=== PATIENT | female | born 1950 | race Caucasian/White ===

== ENCOUNTER 2017-08-09 09:41 | Inpatient (IN) | payer OTHER ==
[2017-08-09] VITALS (28 sets, daily range): BP systolic 78–144; BP diastolic 46–88
[~2017-08-09] VITALS: Ht 152.4 cm; Wt 61.2 kg
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
--- NOTE | ~2017-08-09 | EKG ---
[place] [address] [facility] [place] [address] ELECTROCARDIOGRAM REPORT Name: COUGHLINEVER Room #: [facility]#: [id number] Admission: Attend Phys: Discharge: Date of : 54 Report #: [id number] THIS REPORT FOR: //name// [facility] ED Test Date: 2017-08-09 Test Time: 09:43:52 Pat Name: EVER COUGHLIN Department: Room: Gender: F Bran Mixer: AMINA : 1950 Requested By: Clare Farr Order Number: [id number] MD: Van Cool Measurements Intervals [place] Rate: 142 P: 66 ND: 135 QRS: 36 QRSD: 74 T: 176 QT: 279 QTc: 429 Interpretive Statements Sinus tachycardia Probable LVH with secondary repol abnrm No previous ECG available for comparison Electronically Signed On 08-09-2017 10:01:33 GEOSCIENCES FACULTY MEMBER by Van Cool [email or web address] <ELECTRONICALLY SIGNED> By: Van Cool MD, [facility] 08/09/17 1001 0943 0943 Van Cool MD, FACC /EPI
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
[2017-08-09] MEDS ORDERED: POTASSIUM20 PER TUBE (09:58)
[2017-08-09] MEDS ORDERED: LEVOTHYROXINE125 MCG PER TUBE (09:58)
[2017-08-09] MEDS ORDERED: LANTUS100 UNIT/M SUBQ (09:59)
[2017-08-09] MEDS ORDERED: KEPPRA 500 MG500 M1 PER TUBE (10:00)
[2017-08-09] MEDS ORDERED: AMLODIPINE BESY10 MG PER TUBE (10:01)
[2017-08-09] MEDS ORDERED: PEPCID40 MG/5 M1 PER TUBE (10:02)
[2017-08-09] MEDS ORDERED: HUMALOG100 UNIT/1 SUBQ (10:03)
[2017-08-09] MEDS ORDERED: ACCUCHECK (10:03)
[2017-08-09 10:10] LABS: HEMATOCRIT 39.9 % (37.0-47.0); HEMOGLOBIN 13.3 gm/dL (12.0-15.0); MCH 29.9 pg (26.0-34.0); MCHC 33.3 g/dL (28.0-37.0); MCV 89.8 fL (80.0-100.0); PLATELET COUNT 427 thou/uL (150-400); RBC 4.44 mil/uL (4.20-5.00); RDW 13.8 % (10.5-14.5); WBC 27.9 thou/uL (4.0-11.0)
[2017-08-09 10:14] LABS: MANUAL DIFF YES
[2017-08-09 10:18] LABS: CALCIUM 10.3 mg/dL (8.5-10.1); POTASSIUM 5.2 mmol/L (3.5-5.1)
[2017-08-09 10:23] LABS: ALBUMIN 3.5 g/dL (3.4-5.0); DIRECT BILIRUBIN 0.2 mg/dL (<0.1-0.3); TOTAL BILIRUBIN 1.1 mg/dL (<0.1-1.0); TOTAL PROTEIN 7.4 g/dL (6.4-8.2)
[2017-08-09 10:25] LABS: ABG SAMPLE TYPE ARTERIAL; BE(vivo) -1.7 mmol/L (-2 to +3); LACTATE 3.25 mmol/L (0.5-2.0); O2(CT) 13.5 mL/dL (15.0-23.0); PCO2 33.6 mmHg (35.0-45.0); PO2 50.6 mmHg (80.0-100.0); pH 7.434 (7.360-7.450); sO2 87.4 % (92.0-98.0)
[2017-08-09 10:26] LABS: Face Shield 60 %; STICK SITE RRAD
[2017-08-09 10:29] LABS: URINE COLOR YELLOW
[2017-08-09 10:40] LABS: URINE BILIRUBIN NEGATIVE (Negative)
[2017-08-09 10:41] LABS: AMORPHOUS URATES Many /LPF (None Seen); CASTS None Seen /LPF (None Seen); SQUAMOUS None Seen /LPF (0-3); URINE RBC 3-10 Few /HPF (0-2); URINE WBC 6-15 Few /HPF (0-5)
[2017-08-09 11:10] LABS: ABSOLUTE NEUTROPHILS 25.9 thou/uL (1.4-8.2); PLATELET ESTIMATE NORMAL; TOTAL CELL COUNT 100
[2017-08-09 13:53] LABS: CALCIUM 8.9 mg/dL (8.5-10.1); CREATININE 0.8 mg/dL (0.6-1.0); POTASSIUM 3.6 mmol/L (3.5-5.1)
[2017-08-09 17:33] LABS: CALCIUM 8.4 mg/dL (8.5-10.1); CREATININE 0.5 mg/dL (0.6-1.0); POTASSIUM 3.3 mmol/L (3.5-5.1)
[2017-08-09 21:23] LABS: POTASSIUM 3.6 mmol/L (3.5-5.1)
[2017-08-10] VITALS (31 sets, daily range): BP systolic 96–145; BP diastolic 50–94
[2017-08-10 05:17] LABS: ABG SAMPLE TYPE ARTERIAL; BE(vivo) -0.3 mmol/L (-2 to +3); HCO3 23.2 mmol/L (22.0-26.0); LACTATE 0.98 mmol/L (0.5-2.0); O2(CT) 14.1 mL/dL (15.0-23.0); PCO2 33.8 mmHg (35.0-45.0); PO2 72.2 mmHg (80.0-100.0); pH 7.454 (7.360-7.450); sO2 95.4 % (92.0-98.0); tCO2 24.2 mmol/L (24.0-30.0)
[2017-08-10 05:18] LABS: STICK SITE R.RADIAL
[2017-08-10 06:16] LABS: HEMATOCRIT 27.8 % (37.0-47.0); MCH 30.7 pg (26.0-34.0); MCHC 33.8 g/dL (28.0-37.0); MCV 90.8 fL (80.0-100.0); RBC 3.07 mil/uL (4.20-5.00); RDW 13.5 % (10.5-14.5)
[2017-08-10 06:17] LABS: HEMOGLOBIN 9.4 gm/dL (12.0-15.0); MANUAL DIFF YES; PLATELET COUNT 233 thou/uL (150-400)
[2017-08-10 06:30] LABS: ALBUMIN 2.5 g/dL (3.4-5.0); CALCIUM 8.4 mg/dL (8.5-10.1); CREATININE 0.4 mg/dL (0.6-1.0); TOTAL BILIRUBIN 1.1 mg/dL (<0.1-1.0); TOTAL PROTEIN 5.5 g/dL (6.4-8.2)
[2017-08-10 06:32] LABS: POTASSIUM 2.9 mmol/L (3.5-5.1)
[2017-08-10 08:50] LABS: ABSOLUTE NEUTROPHILS 14.2 thou/uL (1.4-8.2); PLATELET ESTIMATE NORMAL; TOTAL CELL COUNT 100
[2017-08-10 09:31] LABS: MAGNESIUM 1.6 mg/dL (1.8-2.4)
[2017-08-10 15:45] LABS: POTASSIUM 3.1 mmol/L (3.5-5.1)
[2017-08-11] VITALS (16 sets, daily range): BP systolic 100–152; BP diastolic 53–79
[2017-08-11 05:36] LABS: HEMOGLOBIN 8.9 gm/dL (12.0-15.0); MCH 30.6 pg (26.0-34.0); MCHC 34.2 g/dL (28.0-37.0); MCV 89.5 fL (80.0-100.0); PLATELET COUNT 228 thou/uL (150-400); RDW 13.2 % (10.5-14.5); WBC 16.7 thou/uL (4.0-11.0)
[2017-08-11 05:39] LABS: MANUAL DIFF YES
[2017-08-11 05:42] LABS: CALCIUM 8.2 mg/dL (8.5-10.1); CREATININE 0.4 mg/dL (0.6-1.0); POTASSIUM 3.1 mmol/L (3.5-5.1)
[2017-08-11 08:33] LABS: ABSOLUTE NEUTROPHILS 14.4 thou/uL (1.4-8.2); TOTAL CELL COUNT 100
[2017-08-12 04:47] VITALS: BP 132/63
[2017-08-12 07:38] VITALS: BP 146/66
[2017-08-12 15:20] VITALS: BP 125/66
[2017-08-12 20:31] VITALS: BP 133/69
[2017-08-13 06:20] LABS: HEMATOCRIT 25.3 % (37.0-47.0); HEMOGLOBIN 8.6 gm/dL (12.0-15.0); MCH 30.8 pg (26.0-34.0); MCV 90.7 fL (80.0-100.0); RBC 2.79 mil/uL (4.20-5.00); RDW 13.1 % (10.5-14.5); WBC 9.1 thou/uL (4.0-11.0)
[2017-08-13 06:38] LABS: ALBUMIN 2.1 g/dL (3.4-5.0); CALCIUM 8.5 mg/dL (8.5-10.1); CREATININE 0.3 mg/dL (0.6-1.0); PHOSPHORUS 2.4 mg/dL (2.5-4.9); POTASSIUM 3.4 mmol/L (3.5-5.1)
[2017-08-13 07:45] VITALS: BP 118/66
[2017-08-13 11:00] VITALS: BP 118/66
[2017-08-13 16:05] VITALS: BP 128/70
[2017-08-13 20:15] VITALS: BP 143/77
[2017-08-14 05:55] VITALS: BP 120/58
[2017-08-14 08:31] VITALS: BP 132/68
[2017-08-14 16:26] VITALS: BP 132/65
[2017-08-14 20:15] VITALS: BP 131/60
[2017-08-15 07:43] VITALS: BP 127/62
[2017-08-15 16:15] VITALS: BP 128/66
[2017-08-15 20:43] VITALS: BP 138/78
[2017-08-16 04:15] VITALS: BP 127/63
[2017-08-16 04:20] VITALS: BP 127/63
[2017-08-16 11:00] VITALS: BP 137/81
[2017-08-16 15:38] VITALS: BP 118/63
[2017-08-16 20:54] VITALS: BP 120/63
[2017-08-17 00:01] VITALS: BP 108/63
[2017-08-17 04:00] LABS: HEMATOCRIT 29.9 % (37.0-47.0); HEMOGLOBIN 10.6 gm/dL (12.0-15.0); MCH 31.6 pg (26.0-34.0); MCHC 35.6 g/dL (28.0-37.0); MCV 88.7 fL (80.0-100.0); RBC 3.37 mil/uL (4.20-5.00); RDW 13.4 % (10.5-14.5); WBC 13.4 thou/uL (4.0-11.0)
[2017-08-17 04:07] LABS: ALBUMIN 2.6 g/dL (3.4-5.0); CALCIUM 9.4 mg/dL (8.5-10.1); CREATININE 0.4 mg/dL (0.6-1.0); PHOSPHORUS 3.9 mg/dL (2.5-4.9); POTASSIUM 3.8 mmol/L (3.5-5.1)
[2017-08-17 04:15] VITALS: BP 119/63
[2017-08-17 07:30] VITALS: BP 116/64
[2017-08-17] MEDS ORDERED: AUGMENTIN 875-1 EACH PO (08:55)
[2017-08-17 11:12] VITALS: BP 131/93
[2017-08-17 15:51] VITALS: BP 103/88
[2017-08-17 19:45] VITALS: BP 152/42
[2017-08-18 00:30] VITALS: BP 108/51
[2017-08-18 03:34] LABS: HEMATOCRIT 27.3 % (37.0-47.0); HEMOGLOBIN 9.3 gm/dL (12.0-15.0); MCH 30.3 pg (26.0-34.0); MCHC 34.2 g/dL (28.0-37.0); MCV 88.6 fL (80.0-100.0); RBC 3.08 mil/uL (4.20-5.00); WBC 11.8 thou/uL (4.0-11.0)
[2017-08-18 03:35] LABS: PLATELET COUNT 400 thou/uL (150-400)
[2017-08-18 03:36] LABS: MANUAL DIFF YES
[2017-08-18 04:05] VITALS: BP 113/57
[2017-08-18 05:59] LABS: ABSOLUTE NEUTROPHILS 10.5 thou/uL (1.4-8.2); TOTAL CELL COUNT 100
[2017-08-18 08:16] VITALS: BP 109/66
[2017-08-18 12:26] VITALS: BP 130/107
[2017-08-18 16:00] VITALS: BP 100/65
== END 2017-08-18 17:12 | DRG 871 ==
LOC: ER 09:41 → ICU 10:56 → EROBS 10:56 → ICU 12:56 → 4S 08-11 16:17 → 2N 08-16 10:43
PROVIDERS: Emergency Medicine; Hospitalist; Internal Medicine Pulmonary Disease; Specialist
PROC: B244ZZZ Ultrasonography of Right Heart (ICD-10-PCS; principal; 2017-08-09)
PROC: 02H633Z Insertion of Infusion Device into Right Atrium, Percutaneous Approach (ICD-10-PCS; principal; 2017-08-09)
DX: A41.9 Sepsis, unspecified organism (principal); G93.40 Encephalopathy, unspecified; J18.9 Pneumonia, unspecified organism; J96.91 Respiratory failure, unspecified with hypoxia; N17.9 Acute kidney failure, unspecified; N39.0 Urinary tract infection, site not specified; E46 Unspecified protein-calorie malnutrition; R65.20 Severe sepsis without septic shock; G40.909 Epilepsy, unspecified, not intractable, without status epilepticus; B96.4 Proteus (mirabilis) (morganii) as the cause of diseases classified elsewhere; E87.6 Hypokalemia; D64.9 Anemia, unspecified; Z85.3 Personal history of malignant neoplasm of breast; Z87.820 Personal history of traumatic brain injury; Z88.8 Allergy status to other drugs, medicaments and biological substances; Z88.2 Allergy status to sulfonamides; Z68.26 Body mass index [BMI] 26.0-26.9, adult; Z93.0 Tracheostomy status
CPT/HCPCS: 10078; 10081; 10100; 27000

== ENCOUNTER 2017-10-05 10:47 | Inpatient (IN) | payer OTHER ==
[2017-10-05] VITALS (46 sets, daily range): BP systolic 59–147; BP diastolic 37–82
[~2017-10-05] VITALS: Ht 152.4 cm; Wt 66.3 kg
--- NOTE | ~2017-10-05 | EKG ---
[place] [address] [facility] [place] [address] ELECTROCARDIOGRAM REPORT Name: COUGHLINEVER Room #: 240-[facility] IN M.R.#: [id number] Admission: 10/05/17 Attend Phys: Avtar Diana DO Discharge: Date of : 54 Report #: [id number] THIS REPORT FOR: //name// [facility] ED Test Date: 2017-10-05 Test Time: 11:05:45 Pat Name: EVER COUGHLIN Department: Room: 240 Gender: F Global Transportation Manager: CORONA : 1950 Requested By: Ricky Escobar Order Number: [id number] MD: Van Cool Measurements Intervals [place] Rate: 147 P: 77 WA: 112 QRS: 73 QRSD: 80 T: -70 QT: 333 QTc: 521 Interpretive Statements Sinus tachycardia Consider right atrial enlargement Nonspecific ST segment abnormality Prolonged QT interval Compared to ECG 08/09/2017 09:43:52 Prolonged QT interval now present Electronically Signed On 10-05-2017 17:00:19 OIL ANALYST by Van Cool [email or web address] <ELECTRONICALLY SIGNED> By: Van Cool MD, [facility] 10/05/17 1700 1105 1105 Van Cool MD, [facility] /EPI
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
--- NOTE | ~2017-10-05 | HC ---
[facility] [place] [address] CONSULTATION Name: MADYSONEVER Vu Room #: 240-P [facility] IN M.R.#: [id number] Admission: 10/05/17 Attend Phys: Avtar Diana DO Discharge: Date of : 54 Report #: [id number] THIS REPORT FOR: //name// CC: Avtar Bolton DATE OF SERVICE: 10/05/2017 REFERRING PROVIDER: Avtar Diana DO REASON FOR CONSULTATION: Respiratory failure. CHIEF COMPLAINT: Aspiration. HISTORY OF PRESENT ILLNESS: Our group was asked to see the patient in consultation while hospitalized at [facility], seen this afternoon in the ICU. Discussed with nursing, is a 67-year-old woman with an unfortunate past medical history of left hemicraniectomy, has had chronic ventilator support since that time, found at [facility] facility with a change in status. Secretions aspirated from her trachea were actually tube feeds. The patient was brought to the Emergency Department in respiratory distress, but significantly recovered. A significant lactic acidosis has improved. After my evaluation, the patient was placed on sepsis protocol due to other findings consistent with severe infection. Unable to get any further history from the patient at this time. While seen in the ICU, I also placed PEG tube to suction and was able to aspirate a large amount of material from her G-tube. ALLERGIES: SULFA, PROCHLORPERAZINE AND ADHESIVE. PAST MEDICAL HISTORY: 1. Left hemicraniectomy as described above. 2. Chronic respiratory insufficiency. 3. Hypertension. 4. History of breast cancer treated in 2011. CURRENT MEDICATIONS: 1. Vancomycin. 2. Zosyn. 3. Azithromycin. 4. Synthroid. 5. Keppra. SOCIAL HISTORY: Currently residing at a [facility] facility. No tobacco history. [facility] [address] [place] [address] CONSULTATION Name: MADYSONEVER A Room #: 240-P [facility] IN [facility]#: [id number] Admission: 10/05/17 Attend Phys: Avtar Diana DO Discharge: Date of : 54 Report #: [id number] FAMILY HISTORY: Unobtainable. REVIEW OF SYSTEMS: Unobtainable due to her current neurologic status. PHYSICAL EXAMINATION: VITAL SIGNS: Temperature 39.2, pulse 140s and regular, respiratory rate 18 and blood pressure 92/73. GENERAL: This is an elderly woman, unresponsive. ENT: Extended length trach in place with tube feedings noted around the airway. No surrounding erythema. C-collar in place. The patient with typically a helmet in place. LUNGS: Relatively clear. CARDIOVASCULAR: Tachycardic, but regular. ABDOMEN: Mildly distended. EXTREMITIES: Warm. INTEGUMENT: No rash. NEUROLOGIC: The patient opens eyes to painful stimuli. No other response appreciated at this time. Pupils sluggish. LABORATORY DATA: White blood cell count 13,000, hemoglobin 15, hematocrit 45 and platelet count 450. Sodium was 143, potassium 4.1, chloride 104, bicarbonate 29, BUN 50, creatinine 1.1, glucose 187 and total bilirubin 1.9. Arterial blood gas initially was pH 7.44, pCO2 of 28, pO2 542, bicarbonate of 18 with a lactate of 12. Current vent settings include assist control tidal volume 550, FiO2 of 30%, PEEP of 5 and rate of 16. IMPRESSION: 1. Severe sepsis, suspect secondary to abdominal process. 2. Aspiration on tube feeds. 3. Chronic respiratory failure. 4. History of traumatic brain injury with significant neurologic sequelae. 5. History of hypertension. SUGGESTIONS: 1. Sepsis protocol. 2. ID evaluation and antibiotics recommendations. 3. Cultures. 4. CT abdomen and pelvis. 5. Continue with current vent support. 6. Bronchodilators. 7. We will follow along with you as mentioned. Discussed with nursing. [address] [address] CONSULTATION Name: EVER COUGHLIN Vu Room #: [address] [place] [address] [place] .R.#: [id number] Admission: 10/05/17 Attend Phys: Avtar Diana DO Discharge: Date of : 54 Report #: [id number] Total critical care time 40 minutes, not including any procedures. <ELECTRONICALLY SIGNED> By: Atif Velez MD 10/09/17 1535 1819 0348 Atif Velez MD /nt
[~2017-10-05 10:47] MED LIST: ACCUCHECK; AMLODIPINE BESY10 MG PER TUBE; AUGMENTIN 875-1 EACH PO; HUMALOG100 UNIT/1 SUBQ; KEPPRA 500 MG500 M1 PER TUBE; LANTUS100 UNIT/M SUBQ; LEVOTHYROXINE125 MCG PER TUBE; PEPCID40 MG/5 M1 PER TUBE; POTASSIUM20 PER TUBE
[2017-10-05 11:23] LABS: BE(vivo) -4.3 mmol/L (-2 to +3); HCO3 18.2 mmol/L (22.0-26.0); PCO2 27.6 mmHg (35.0-45.0); PO2 542.7 mmHg (80.0-100.0); pH 7.438 (7.360-7.450); sO2 99.9 % (92.0-98.0)
[2017-10-05 12:03] LABS: ABSOLUTE NEUTROPHILS 12.1 thou/uL (1.4-8.2); BASOPHILS 0.1 % (0.0-2.0); EOSINOPHILS 0.1 % (0.0-3.0); HEMATOCRIT 44.7 % (37.0-47.0); HEMOGLOBIN 14.9 gm/dL (12.0-15.0); LYMPHOCYTES 3.1 % (24.0-44.0); MCH 30.3 pg (26.0-34.0); MCHC 33.3 g/dL (28.0-37.0); MONOCYTES 1.2 % (1.0-8.0); PLATELET COUNT 450 thou/uL (150-400); POLYS 95.5 % (36.0-66.0); RBC 4.91 mil/uL (4.20-5.00); RDW 14.8 % (10.5-14.5); WBC 12.7 thou/uL (4.0-11.0)
[2017-10-05 12:11] LABS: ANION GAP 18 mmol/L (7-16); BUN 46 mg/dL (7-18); CALCIUM 10.4 mg/dL (8.5-10.1); CHLORIDE 99 mmol/L (98-107); CO2 23 mmol/L (21-32); CREATININE 1.4 mg/dL (0.6-1.0); GLUCOSE 302 mg/dL (74-106); POTASSIUM 4.3 mmol/L (3.5-5.1); SODIUM 140 mmol/L (136-145)
[2017-10-05 12:20] LABS: ALBUMIN 3.5 g/dL (3.4-5.0); MAGNESIUM 1.9 mg/dL (1.8-2.4); SGOT 41 U/L (15-37); SGPT 72 U/L (30-65); TOTAL PROTEIN 7.4 g/dL (6.4-8.2); TROPONIN-I < 0.04 ng/mL (<0.06)
[2017-10-05 12:21] LABS: APTT 25.6 Seconds (24.5-32.8)
[2017-10-05 12:39] LABS: TOTAL BILIRUBIN 1.5 mg/dL (<0.1-1.0)
[2017-10-05 16:07] LABS: URINE BLOOD 3+ (Negative); URINE COLOR YELLOW; URINE GLUCOSE-RANDOM* NEGATIVE (Negative); URINE KETONES TRACE (Negative); URINE NITRITE-REFLEX NEGATIVE (Negative); URINE PROTEIN (DIPSTICK) 3+ (Negative); URINE SPECIFIC GRAVITY 1.025 (1.005-1.035); URINE UROBILINOGEN 0.2 E.U./dl (0.2-1.0)
[2017-10-05 16:12] LABS: URINE BILIRUBIN NEGATIVE (Negative); URINE CLARITY CLOUDY; URINE LEUKOCYTES-REFLEX 2+ (Negative)
[2017-10-05 16:14] LABS: BACTERIA-REFLEX >30 Many /HPF (None Seen); CASTS None Seen /LPF (None Seen); CRYSTALS None Seen /LPF (None Seen); SQUAMOUS 0-3 Few /LPF (0-3); URINE RBC >20 Many /HPF (0-2); URINE WBC-REFLEX >25 Many /HPF (0-5)
[2017-10-05 16:28] LABS: HEMATOCRIT 38.2 % (37.0-47.0); MCH 30.4 pg (26.0-34.0); MCHC 33.9 g/dL (28.0-37.0); MCV 89.8 fL (80.0-100.0); RBC 4.25 mil/uL (4.20-5.00); RDW 14.7 % (10.5-14.5); WBC 10.7 thou/uL (4.0-11.0)
[2017-10-05 16:29] LABS: HEMOGLOBIN 12.9 gm/dL (12.0-15.0); PLATELET COUNT 326 thou/uL (150-400)
[2017-10-05 16:37] LABS: CALCIUM 9.6 mg/dL (8.5-10.1); CREATININE 1.1 mg/dL (0.6-1.0); POTASSIUM 4.1 mmol/L (3.5-5.1)
[2017-10-05 16:42] LABS: ALBUMIN 2.7 g/dL (3.4-5.0); TOTAL BILIRUBIN 1.9 mg/dL (<0.1-1.0); TOTAL PROTEIN 5.8 g/dL (6.4-8.2)
[2017-10-05 16:43] LABS: BE(vivo) 0.8 mmol/L (-2 to +3); HCO3 23.4 mmol/L (22.0-26.0); PCO2 31.4 mmHg (35.0-45.0); PO2 61.8 mmHg (80.0-100.0); sO2 93.6 % (92.0-98.0)
[2017-10-05 16:48] LABS: ATYPICAL LYMPHS 1 %
[2017-10-05 16:49] LABS: ABSOLUTE NEUTROPHILS 9.3 thou/uL (1.4-8.2)
[2017-10-05 16:50] LABS: APTT 24.7 Seconds (24.5-32.8); FIBRINOGEN 382.3 mg/dL (210-360); PROTIME 10.5 Seconds (9.3-11.4)
[2017-10-05 20:46] LABS: CALCIUM 9.1 mg/dL (8.5-10.1); POTASSIUM 3.9 mmol/L (3.5-5.1)
[2017-10-06] VITALS (95 sets, daily range): BP systolic 64–146; BP diastolic 45–90
[2017-10-06 00:49] LABS: CALCIUM 8.7 mg/dL (8.5-10.1); CREATININE 0.8 mg/dL (0.6-1.0); POTASSIUM 3.3 mmol/L (3.5-5.1)
[2017-10-06 06:29] LABS: HEMATOCRIT 26.9 % (37.0-47.0); MCH 30.5 pg (26.0-34.0); MCV 89.7 fL (80.0-100.0); PLATELET COUNT 284 thou/uL (150-400); WBC 18.7 thou/uL (4.0-11.0)
[2017-10-06 06:35] LABS: HEMOGLOBIN 9.1 gm/dL (12.0-15.0)
[2017-10-06 06:38] LABS: CALCIUM 8.9 mg/dL (8.5-10.1); CREATININE 0.6 mg/dL (0.6-1.0); MAGNESIUM 1.7 mg/dL (1.8-2.4); POTASSIUM 3.4 mmol/L (3.5-5.1)
[2017-10-06 09:17] LABS: ABSOLUTE NEUTROPHILS 16.1 thou/uL (1.4-8.2); METAMYELOCYTES 8 %; MYELOCYTES 1 %; PLATELET ESTIMATE NORMAL
[2017-10-06 14:46] LABS: MAGNESIUM 2.1 mg/dL (1.8-2.4); POTASSIUM 3.2 mmol/L (3.5-5.1)
[2017-10-07] VITALS (42 sets, daily range): BP systolic 93–143; BP diastolic 54–79
[2017-10-07 03:19] LABS: ABSOLUTE NEUTROPHILS 12.4 thou/uL (1.4-8.2); BASOPHILS 0.1 % (0.0-2.0); EOSINOPHILS 0.4 % (0.0-3.0); HEMATOCRIT 22.6 % (37.0-47.0); HEMOGLOBIN 7.6 gm/dL (12.0-15.0); LYMPHOCYTES 2.9 % (24.0-44.0); MCH 30.3 pg (26.0-34.0); MCHC 33.5 g/dL (28.0-37.0); MCV 90.5 fL (80.0-100.0); POLYS 93.6 % (36.0-66.0); WBC 13.2 thou/uL (4.0-11.0)
[2017-10-07 03:22] LABS: PLATELET COUNT 198 thou/uL (150-400)
[2017-10-07 03:26] LABS: CALCIUM 8.6 mg/dL (8.5-10.1); CREATININE 0.4 mg/dL (0.6-1.0); POTASSIUM 3.7 mmol/L (3.5-5.1)
[2017-10-07 15:58] LABS: ABSOLUTE NEUTROPHILS 13.8 thou/uL (1.4-8.2); BASOPHILS 0.2 % (0.0-2.0); EOSINOPHILS 0.1 % (0.0-3.0); HEMATOCRIT 23.4 % (37.0-47.0); HEMOGLOBIN 7.9 gm/dL (12.0-15.0); LYMPHOCYTES 3.1 % (24.0-44.0); MCH 30.5 pg (26.0-34.0); MCHC 33.8 g/dL (28.0-37.0); MCV 90.4 fL (80.0-100.0); MONOCYTES 2.4 % (1.0-8.0); PLATELET COUNT 207 thou/uL (150-400); POLYS 94.2 % (36.0-66.0); RBC 2.59 mil/uL (4.20-5.00); RDW 15.3 % (10.5-14.5); WBC 14.6 thou/uL (4.0-11.0)
[2017-10-08] VITALS (24 sets, daily range): BP systolic 103–150; BP diastolic 54–95
[2017-10-08 04:57] LABS: HEMATOCRIT 24.4 % (37.0-47.0); HEMOGLOBIN 8.2 gm/dL (12.0-15.0); MCH 30.4 pg (26.0-34.0); MCHC 33.7 g/dL (28.0-37.0); MCV 90.2 fL (80.0-100.0); PLATELET COUNT 209 thou/uL (150-400); RDW 14.7 % (10.5-14.5); WBC 13.3 thou/uL (4.0-11.0)
[2017-10-08 05:07] LABS: CALCIUM 8.7 mg/dL (8.5-10.1); CREATININE 0.6 mg/dL (0.6-1.0)
[2017-10-08 05:15] LABS: POTASSIUM 2.4 mmol/L (3.5-5.1)
[2017-10-08 06:07] LABS: ABSOLUTE NEUTROPHILS 12.2 thou/uL (1.4-8.2); MYELOCYTES 1 %
[2017-10-09] VITALS (22 sets, daily range): BP systolic 123–161; BP diastolic 63–91
[2017-10-09 04:42] LABS: HEMATOCRIT 25.8 % (37.0-47.0); HEMOGLOBIN 8.8 gm/dL (12.0-15.0); MCH 30.5 pg (26.0-34.0); MCV 89.8 fL (80.0-100.0); PLATELET COUNT 225 thou/uL (150-400); RBC 2.88 mil/uL (4.20-5.00); RDW 14.6 % (10.5-14.5); WBC 13.6 thou/uL (4.0-11.0)
[2017-10-09 04:52] LABS: CALCIUM 8.3 mg/dL (8.5-10.1); CREATININE 0.5 mg/dL (0.6-1.0); MAGNESIUM 1.5 mg/dL (1.8-2.4); POTASSIUM 3.6 mmol/L (3.5-5.1)
[2017-10-09 06:59] LABS: ABSOLUTE NEUTROPHILS 12.1 thou/uL (1.4-8.2); NUCLEATED RBCS 1 /100WBC
[2017-10-09 07:00] LABS: PLATELET ESTIMATE NORMAL
[2017-10-09] MEDS ORDERED: AUGMENTIN 875-1 EACH PO (09:44)
[2017-10-09 15:41] LABS: BE(vivo) 1.6 mmol/L (-2 to +3); HCO3 24.8 mmol/L (22.0-26.0); PCO2 33.6 mmHg (35.0-45.0); PO2 94.8 mmHg (80.0-100.0); pH 7.486 (7.360-7.450); sO2 97.8 % (92.0-98.0)
[2017-10-10] VITALS (11 sets, daily range): BP systolic 121–157; BP diastolic 63–97
[2017-10-10 04:24] LABS: HCO3 27.2 mmol/L (22.0-26.0); PCO2 35.7 mmHg (35.0-45.0); PO2 104.1 mmHg (80.0-100.0); sO2 98.2 % (92.0-98.0)
== END 2017-10-10 13:20 | DRG 870 ==
LOC: ER 10:47 → ICU 12:00 → EROBS 12:00 → ICU 13:01
PROVIDERS: Emergency Medicine; Family Medicine; Internal Medicine Pulmonary Disease; Specialist
PROC: B5181ZA Fluoroscopy of Superior Vena Cava using Low Osmolar Contrast, Guidance (ICD-10-PCS; principal; 2017-10-05)
PROC: 02HV33Z Insertion of Infusion Device into Superior Vena Cava, Percutaneous Approach (ICD-10-PCS; principal; 2017-10-05)
PROC: 5A1955Z Respiratory Ventilation, Greater than 96 Consecutive Hours (ICD-10-PCS; principal; 2017-10-05)
PROC: B548ZZA Ultrasonography of Superior Vena Cava, Guidance (ICD-10-PCS; principal; 2017-10-05)
DX: A41.9 Sepsis, unspecified organism (principal); J69.0 Pneumonitis due to inhalation of food and vomit; R65.21 Severe sepsis with septic shock; J96.21 Acute and chronic respiratory failure with hypoxia; G93.40 Encephalopathy, unspecified; E87.2 Acidosis; N17.9 Acute kidney failure, unspecified; N39.0 Urinary tract infection, site not specified; Z99.11 Dependence on respirator [ventilator] status; E86.0 Dehydration; R73.9 Hyperglycemia, unspecified; E03.9 Hypothyroidism, unspecified; I10 Essential (primary) hypertension; K56.41 Fecal impaction; B95.1 Streptococcus, group B, as the cause of diseases classified elsewhere; D64.9 Anemia, unspecified; T38.0X5A Adverse effect of glucocorticoids and synthetic analogues, initial encounter; Y92.89 Other specified places as the place of occurrence of the external cause; Z98.891 History of uterine scar from previous surgery; Z85.3 Personal history of malignant neoplasm of breast; Z85.850 Personal history of malignant neoplasm of thyroid; Z92.21 Personal history of antineoplastic chemotherapy; Z87.820 Personal history of traumatic brain injury; Z88.2 Allergy status to sulfonamides; Z88.8 Allergy status to other drugs, medicaments and biological substances; Z91.048 Other nonmedicinal substance allergy status; Z93.0 Tracheostomy status; Z93.1 Gastrostomy status
CPT/HCPCS: 10078

== ENCOUNTER 2017-12-16 14:26 | Inpatient (IN) | payer OTHER ==
[~2017-12-16] VITALS: Ht 167.6 cm; Wt 64.6 kg
[2017-12-16] VITALS (25 sets, daily range): BP systolic 85–138; BP diastolic 61–86
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
[2017-12-16 14:30] LABS: BE(vivo) 2.6 mmol/L (-2 to +3); HCO3 25.5 mmol/L (22.0-26.0); PCO2 33.9 mmHg (35.0-45.0); PO2 293.1 mmHg (80.0-100.0); pH 7.494 (7.360-7.450); sO2 99.7 % (92.0-98.0)
[2017-12-16 14:59] LABS: HEMATOCRIT 33.6 % (37.0-47.0); HEMOGLOBIN 11.2 gm/dL (12.0-15.0); MCH 29.4 pg (26.0-34.0); MCHC 33.2 g/dL (28.0-37.0); MCV 88.6 fL (80.0-100.0); PLATELET COUNT 266 thou/uL (150-400); RBC 3.79 mil/uL (4.20-5.00); WBC 25.5 thou/uL (4.0-11.0)
[2017-12-16 15:02] LABS: CALCIUM 8.6 mg/dL (8.5-10.1); CREATININE 0.7 mg/dL (0.6-1.0); POTASSIUM 3.6 mmol/L (3.5-5.1)
[2017-12-16 15:08] LABS: ALBUMIN 2.7 g/dL (3.4-5.0); MAGNESIUM 1.5 mg/dL (1.8-2.4); TOTAL BILIRUBIN 1.2 mg/dL (<0.1-1.0); TOTAL PROTEIN 6.1 g/dL (6.4-8.2)
[2017-12-16 15:19] LABS: ABSOLUTE NEUTROPHILS 24.7 thou/uL (1.4-8.2); PLATELET ESTIMATE NORMAL
[2017-12-16 15:52] LABS: URINE BILIRUBIN NEGATIVE (Negative); URINE BLOOD TRACE (Negative); URINE CLARITY CLOUDY; URINE COLOR YELLOW; URINE GLUCOSE-RANDOM* NEGATIVE (Negative); URINE KETONES NEGATIVE (Negative); URINE LEUKOCYTES-REFLEX 3+ (Negative); URINE NITRITE-REFLEX POSITIVE (Negative); URINE PROTEIN (DIPSTICK) TRACE (Negative); URINE UROBILINOGEN 0.2 E.U./dl (0.2-1.0)
[2017-12-16 16:00] LABS: AMP/METHAMP Negative (Negative); BARBITURATES Negative (Negative); BENZODIAZEPINES POSITIVE (Negative); COCAINE Negative (Negative); METHADONE Negative (Negative); OPIATES Negative (Negative); PCP Negative (Negative)
[2017-12-16 16:07] LABS: CASTS None Seen /LPF (None Seen); SQUAMOUS 0-3 Few /LPF (0-3); URINE RBC None Seen /HPF (0-2); URINE WBC-REFLEX >25 Many /HPF (0-5); WBC CLUMPS Few (None Seen)
[2017-12-16 16:08] LABS: AMORPHOUS URATES Moderate /LPF (None Seen)
[2017-12-16 19:00] LABS: CALCIUM 9.3 mg/dL (8.5-10.1); CREATININE 0.7 mg/dL (0.6-1.0); POTASSIUM 3.4 mmol/L (3.5-5.1)
[2017-12-17] VITALS (79 sets, daily range): BP systolic 86–139; BP diastolic 57–96
[2017-12-17 07:51] LABS: HEMATOCRIT 30.5 % (37.0-47.0); HEMOGLOBIN 10.3 gm/dL (12.0-15.0); MCH 29.9 pg (26.0-34.0); MCHC 33.8 g/dL (28.0-37.0); MCV 88.5 fL (80.0-100.0); RBC 3.44 mil/uL (4.20-5.00); RDW 14.3 % (10.5-14.5); WBC 15.9 thou/uL (4.0-11.0)
[2017-12-17 07:55] LABS: CALCIUM 8.9 mg/dL (8.5-10.1); CREATININE 0.3 mg/dL (0.6-1.0); POTASSIUM 3.4 mmol/L (3.5-5.1)
[2017-12-18] VITALS (25 sets, daily range): BP systolic 81–145; BP diastolic 51–94
[2017-12-18 05:03] LABS: BE(vivo) -1.3 mmol/L (-2 to +3); HCO3 22.5 mmol/L (22.0-26.0); PCO2 34.9 mmHg (35.0-45.0); PO2 140.5 mmHg (80.0-100.0); pH 7.428 (7.360-7.450); sO2 98.9 % (92.0-98.0)
[2017-12-18 05:18] LABS: CALCIUM 8.7 mg/dL (8.5-10.1); CREATININE 0.4 mg/dL (0.6-1.0); POTASSIUM 3.5 mmol/L (3.5-5.1)
[2017-12-18 05:27] LABS: HEMATOCRIT 31.4 % (37.0-47.0); HEMOGLOBIN 10.6 gm/dL (12.0-15.0); MCH 30.2 pg (26.0-34.0); MCHC 33.8 g/dL (28.0-37.0); MCV 89.3 fL (80.0-100.0); RBC 3.51 mil/uL (4.20-5.00); RDW 14.4 % (10.5-14.5); WBC 10.7 thou/uL (4.0-11.0)
[2017-12-18 17:05] LABS: BE(vivo) 0.4 mmol/L (-2 to +3); HCO3 24.2 mmol/L (22.0-26.0); PCO2 36.1 mmHg (35.0-45.0); PO2 137.1 mmHg (80.0-100.0); pH 7.445 (7.360-7.450); sO2 98.8 % (92.0-98.0)
[2017-12-19 05:00] VITALS: BP 110/57
[2017-12-19 06:14] LABS: HEMATOCRIT 27.9 % (37.0-47.0); HEMOGLOBIN 9.5 gm/dL (12.0-15.0); MCH 30.3 pg (26.0-34.0); MCV 89.1 fL (80.0-100.0); RBC 3.13 mil/uL (4.20-5.00); RDW 13.8 % (10.5-14.5); WBC 8.4 thou/uL (4.0-11.0)
[2017-12-19 06:24] LABS: CALCIUM 8.5 mg/dL (8.5-10.1); CREATININE 0.4 mg/dL (0.6-1.0); POTASSIUM 3.2 mmol/L (3.5-5.1)
[2017-12-19 07:21] LABS: BE(vivo) 1.3 mmol/L (-2 to +3); HCO3 25.6 mmol/L (22.0-26.0); PO2 138.9 mmHg (80.0-100.0); pH 7.435 (7.360-7.450); sO2 98.8 % (92.0-98.0)
[2017-12-19 07:44] VITALS: BP 119/62
[2017-12-19 12:30] VITALS: BP 127/71
[2017-12-19 15:33] VITALS: BP 137/71
[2017-12-19 20:00] VITALS: BP 115/58
[2017-12-20 04:05] VITALS: BP 131/60
[2017-12-20 05:53] LABS: HEMATOCRIT 28.1 % (37.0-47.0); HEMOGLOBIN 9.4 gm/dL (12.0-15.0); MCH 29.7 pg (26.0-34.0); MCHC 33.3 g/dL (28.0-37.0); MCV 89.3 fL (80.0-100.0); RBC 3.15 mil/uL (4.20-5.00); RDW 14.1 % (10.5-14.5); WBC 5.8 thou/uL (4.0-11.0)
[2017-12-20 06:08] LABS: CALCIUM 8.6 mg/dL (8.5-10.1); CREATININE 0.4 mg/dL (0.6-1.0); POTASSIUM 3.4 mmol/L (3.5-5.1)
[2017-12-20 08:08] VITALS: BP 144/78
[2017-12-20 11:43] VITALS: BP 137/80
[2017-12-20 15:12] VITALS: BP 142/75
[2017-12-20] MEDS ORDERED: MACRODANTIN50 M1 PO (15:39)
[2017-12-20] MEDS ORDERED: CEFDINIR300 MG PO (15:55)
[2017-12-20] MEDS ORDERED: KEPPRA 100100 MG/M1 PER TUBE (15:55)
== END 2017-12-20 19:41 | DRG 100 ==
LOC: ER 14:26 → ICU 15:00 → EROBS 15:00 → ICU 16:55 → 3W 12-18 22:20
PROVIDERS: Emergency Medicine; Hospitalist; Internal Medicine Geriatric Medicine; Internal Medicine Pulmonary Disease
PROC: 5A1945Z Respiratory Ventilation, 24-96 Consecutive Hours (ICD-10-PCS; principal; 2017-12-16)
PROC: 4A00X4Z Measurement of Central Nervous Electrical Activity, External Approach (ICD-10-PCS; 2017-12-17)
DX: G40.901 Epilepsy, unspecified, not intractable, with status epilepticus (principal); J96.21 Acute and chronic respiratory failure with hypoxia; N39.0 Urinary tract infection, site not specified; E11.9 Type 2 diabetes mellitus without complications; I10 Essential (primary) hypertension; E03.9 Hypothyroidism, unspecified; D72.829 Elevated white blood cell count, unspecified; Z87.820 Personal history of traumatic brain injury; Z98.891 History of uterine scar from previous surgery; Z93.0 Tracheostomy status; Z85.3 Personal history of malignant neoplasm of breast; Z92.21 Personal history of antineoplastic chemotherapy; Z85.850 Personal history of malignant neoplasm of thyroid; Z88.2 Allergy status to sulfonamides; Z88.8 Allergy status to other drugs, medicaments and biological substances
CPT/HCPCS: 10078; 10879

== ENCOUNTER 2018-03-05 00:22 | Observation (INO) | payer OTHER ==
[~2018-03-05] VITALS: Ht 167.6 cm; Wt 62.1 kg
[2018-03-05] VITALS (9 sets, daily range): BP systolic 118–168; BP diastolic 65–100
[~2018-03-05 00:22] MED LIST changes: +CEFDINIR300 MG PO; +KEPPRA 100100 MG/M1 PER TUBE; +MACRODANTIN50 M1 PO
[2018-03-05] MEDS ORDERED: PEPCID20 MG PER TUBE (00:53)
[2018-03-05] MEDS ORDERED: AMLODIPINE BESY10 MG PER TUBE (00:53)
[2018-03-05] MEDS ORDERED: HUMALOG100 UNIT/1 SUBQ (00:53)
[2018-03-05] MEDS ORDERED: LANTUS100 UNIT/M SUBQ (00:54)
[2018-03-05] MEDS ORDERED: IPRAT-ALBUT 0.5-3 ML INH (00:54)
[2018-03-05] MEDS ORDERED: POTASSIUM40 MEQ/11 PER TUBE (00:56)
[2018-03-05] MEDS ORDERED: SYNTHROID125 MC1 PO (02:10)
[2018-03-06 04:01] VITALS: BP 127/81
[2018-03-06 08:20] VITALS: BP 124/72
[2018-03-06 11:05] VITALS: BP 135/75
[2018-03-06 12:05] VITALS: BP 135/75
== END 2018-03-06 15:15 ==
LOC: ER 00:22 → EROBS 00:33 → 2N 01:53
DX: S06.9X0A Unspecified intracranial injury without loss of consciousness, initial encounter (principal); E03.9 Hypothyroidism, unspecified; R56.9 Unspecified convulsions; C73 Malignant neoplasm of thyroid gland; E11.9 Type 2 diabetes mellitus without complications; Z85.3 Personal history of malignant neoplasm of breast; Z79.899 Other long term (current) drug therapy; Z79.4 Long term (current) use of insulin; V89.2XXA Person injured in unspecified motor-vehicle accident, traffic, initial encounter; Y93.89 Activity, other specified; Y92.89 Other specified places as the place of occurrence of the external cause; Y99.8 Other external cause status

== ENCOUNTER 2019-04-20 17:46 | Emergency (ER) | payer OTHER ==
[~2019-04-20] VITALS: Ht 160 cm; Wt 71.7 kg
[~2019-04-20 17:46] MED LIST changes: +IPRAT-ALBUT 0.5-3 ML INH; +PEPCID20 MG PER TUBE; +POTASSIUM40 MEQ/11 PER TUBE; +SYNTHROID125 MC1 PO
== END 2019-04-20 18:10 | disposition home or self-care (01) ==
LOC: ER 17:46
DX: K94.23 Gastrostomy malfunction (principal); E11.9 Type 2 diabetes mellitus without complications; Z98.890 Other specified postprocedural states; Z85.3 Personal history of malignant neoplasm of breast; Z85.850 Personal history of malignant neoplasm of thyroid; Z88.2 Allergy status to sulfonamides; Z88.8 Allergy status to other drugs, medicaments and biological substances; Z91.048 Other nonmedicinal substance allergy status

== ENCOUNTER → 2019-05-01 | Outpatient (CLI) | payer OTHER | END | disposition home or self-care (01) | LOC: SPEC 11:26 | DX: K94.23 Gastrostomy malfunction (principal); E11.9 Type 2 diabetes mellitus without complications; E03.9 Hypothyroidism, unspecified; Z85.3 Personal history of malignant neoplasm of breast; Z85.850 Personal history of malignant neoplasm of thyroid; Z98.890 Other specified postprocedural states; Z79.899 Other long term (current) drug therapy; Z88.2 Allergy status to sulfonamides; Z88.8 Allergy status to other drugs, medicaments and biological substances; Z79.4 Long term (current) use of insulin; Z87.820 Personal history of traumatic brain injury ==

== ENCOUNTER 2019-05-08 21:05 | Emergency (ER) | payer OTHER ==
[~2019-05-08] VITALS: Ht 162.6 cm; Wt 145.2 kg
--- NOTE | ~2019-05-08 | EMS ---
[address] [address] EMS Patient Care Report Name: EVER COUGHLIN Room #: REG ADRYAN Meza#: [id number] Admission: 05/08/19 ������������������ Attend Phys: Discharge: ������������������ Date of : 54 Report #: [id number] THIS REPORT FOR: //name// Report Transmitted: 05/08/2019 20:34 EMS Care Summary [facility] MED-ACT Incident [id number] @ 05/08/2019 20:30 Incident Location [address] [place] [address] Patient EVER COUGHLIN Female, 68 Years 1950 Patient Address [address] [place] [address] Patient History Tracheostomy,Type 1 Diabetes, Patient Allergies Sulfa,Adhesive Tape,Compazine, Chief Complaint G-tube has been pulled out Disposition Transported No Lights/[place] Dispatch Reason Sick Person Transported To [facility] Narrative Complaint: "She pulled her g-tube out" History: Facility staff reports that the patient pulled out her g-tube while in her room. Staff states that they came in and found her g-tube pulled out. [address] [address] EMS Patient Care Report Name: EVER COUGHLIN Room #: REG Derrick#: [id number] Admission: 05/08/19 ������������������ Attend Phys: Discharge: ������������������ Date of : 54 Report #: [id number] was then called for patient to be transported to the ER for evaluation and g-tube replacement. Pt is non-communicative / non-verbal which is normal for patient. it is noted that patient has trach in place. Assessment: Pt found lying supine in bed in room at nursing facility. Pt has no obvious s / s of acute distress, pt has g-tube removed with wound in stomach from that removal. Rendered Treatment: Pt evaluated, vitals assessed, history obtained. Pt moved onto sheet for movement to cot, secured and moved to unit. Transport: Vitals re-assessed, bio-com report given. Destination: Pt transported to [facility] ER via EMS. Pt care transferred to RN in ER room 12 with no changes en route. Pt moved to ER bed via 4 person sheet drag. Initial Vitals @21:00P: 65,R: 16,BP: 115/80,SpO2: 98, @20:41P: 66,R: 16,BP: 115/89,Pain: 0/10,GCS: 6,SpO2: 99,Revised Trauma: 10, Assessments @20:50MENTAL:Other,SKIN:HEENT:Head/Face: Other,Eyes: Left Pupil: 5-mm,Eyes: Right Pupil: 5-mm,LUNG SOUNDS:General: No Abnormalities,ABDOMEN:General: No Abnormalities,PELVIS//GI:EXTREMITIES:Left Arm: No Abnormalities,Right Arm: No Abnormalities,Left Leg: No Abnormalities,Right Leg: No Abnormalities,PULSE:NEURO:No Abnormalities, Impression cae engineer failure Timeline 20:29,Call Received 20:29,Psap Call 20:30,Dispatched 20:31,En Route 20:36,On Scene 20:39,At Patient 20:41,BP: 115/89 M,PULSE: 66,RR: 16 R,SPO2: 99 Ox,ETCO2: ,BG: ,PAIN: 0,GCS: 6, 20:52,Depart Scene 21:00,BP: 115/80 M,PULSE: 65,RR: 16 R,SPO2: 98 Ox,ETCO2: ,BG: ,PAIN: ,GCS: , 21:08,At Destination 21:30,Call Closed [facility] [address] [place] [address] EMS Patient Care Report Name: COUGHLINEVER Room #: REG [facility]#: [id number] Admission: 05/08/19 ������������������ Attend Phys: Discharge: ������������������ Date of : 54 Report #: [id number] Disclaimer v1.1 Copyright 2019 [employer] This EMS Care Summary contains data elements from the applicable legal record (which may be displayed differently). It is designed to provide pertinent information for the following purposes: continuity of care, clinical quality, and state data reporting. The complete legal record is available to ED staff and administrators of the receiving hospital in [employer]'s Patient Tracker. All data is provided "as is."
[2019-05-08 23:00] VITALS: BP 108/61
== END 2019-05-08 23:58 | disposition home or self-care (01) ==
LOC: ER 21:05
DX: K94.23 Gastrostomy malfunction (principal); E11.9 Type 2 diabetes mellitus without complications; Z85.850 Personal history of malignant neoplasm of thyroid; Z85.3 Personal history of malignant neoplasm of breast; Z98.890 Other specified postprocedural states; Z79.4 Long term (current) use of insulin; Z88.2 Allergy status to sulfonamides; Z91.048 Other nonmedicinal substance allergy status; Z88.8 Allergy status to other drugs, medicaments and biological substances

== ENCOUNTER 2019-06-27 12:29 | Emergency (ER) | payer OTHER ==
[~2019-06-27] VITALS: Ht 165.1 cm; Wt 78.5 kg
[2019-06-27 12:30] VITALS: BP 125/78
== END 2019-06-27 14:00 | disposition home or self-care (01) ==
LOC: ER 12:29
DX: K94.23 Gastrostomy malfunction (principal); E11.9 Type 2 diabetes mellitus without complications; Z85.3 Personal history of malignant neoplasm of breast; Z98.890 Other specified postprocedural states; Z85.850 Personal history of malignant neoplasm of thyroid; Z88.2 Allergy status to sulfonamides; Z88.8 Allergy status to other drugs, medicaments and biological substances; Z91.048 Other nonmedicinal substance allergy status

== ENCOUNTER 2019-09-16 20:22 | Emergency (ER) | payer OTHER ==
[~2019-09-16] VITALS: Ht 172.7 cm; Wt 90.7 kg
[2019-09-16 22:15] VITALS: BP 140/65
== END 2019-09-16 22:41 ==
LOC: ER 20:22
DX: K94.23 Gastrostomy malfunction (principal); E11.9 Type 2 diabetes mellitus without complications; R56.9 Unspecified convulsions; Z88.2 Allergy status to sulfonamides; Z88.8 Allergy status to other drugs, medicaments and biological substances; Y83.8 Other surgical procedures as the cause of abnormal reaction of the patient, or of later complication, without mention of misadventure at the time of the procedure

== ENCOUNTER 2019-11-05 14:25 | Emergency (ER) | payer OTHER ==
[~2019-11-05] VITALS: Ht 167.6 cm; Wt 77.1 kg
[2019-11-05 14:25] VITALS: BP 141/87
== END 2019-11-05 14:59 ==
LOC: ER 14:25
DX: K94.23 Gastrostomy malfunction (principal); E11.9 Type 2 diabetes mellitus without complications; Z79.4 Long term (current) use of insulin; Z79.899 Other long term (current) drug therapy

== ENCOUNTER 2019-11-06 07:11 | Emergency (ER) | payer OTHER ==
[~2019-11-06] VITALS: Ht 154.9 cm; Wt 72.6 kg
[2019-11-06 08:32] VITALS: BP 150/59
== END 2019-11-06 08:47 ==
LOC: ER 07:11
DX: K94.23 Gastrostomy malfunction (principal); E11.9 Type 2 diabetes mellitus without complications; Z79.899 Other long term (current) drug therapy; Z79.4 Long term (current) use of insulin; Z88.8 Allergy status to other drugs, medicaments and biological substances; Z88.2 Allergy status to sulfonamides

== ENCOUNTER 2020-02-11 15:36 | Emergency (ER) | payer OTHER ==
[~2020-02-11] VITALS: Ht 152.4 cm; Wt 113.4 kg
[2020-02-11 17:46] VITALS: BP 112/85
== END 2020-02-11 17:47 | disposition home or self-care (01) ==
LOC: ER 15:36
DX: Z43.1 Encounter for attention to gastrostomy (principal); E11.9 Type 2 diabetes mellitus without complications; Z79.4 Long term (current) use of insulin; Z79.899 Other long term (current) drug therapy; Z91.048 Other nonmedicinal substance allergy status; Z88.2 Allergy status to sulfonamides; Z88.8 Allergy status to other drugs, medicaments and biological substances; Z87.891 Personal history of nicotine dependence

== ENCOUNTER 2020-03-02 23:39 | Emergency (ER) | payer OTHER ==
[~2020-03-02] VITALS: Ht 165.1 cm; Wt 80.3 kg
--- NOTE | ~2020-03-02 | EMS ---
[address] [address] EMS Patient Care Report Name: EVER COUGHLIN Room #: REG ADRYAN Meza#: [id number] Admission: 03/02/20 Attend Phys: Discharge: Date of : 54 Report #: [id number] THIS REPORT FOR: //name// Report Transmitted: 03/02/2020 23:19 EMS Care Summary [facility] MED-ACT Incident [id number] @ 03/02/2020 23:00 Incident Location [address] [place] [address] Patient EVER COUGHLIN Female, 69 Years 1950 Patient Address [address] [place] [address] Patient History Epilepsy,Tracheostomy,Past Traumatic Brain Injury,Hypothyroidism,Type 1 Diabetes,G-Tube, Patient Allergies Sulfa,Adhesive Tape,Compazine, Patient Medications Acetaminophen, Levemir, Atropine, Humalog, Potassium, Famotidine, DuoNeb, Levothyroxine, Amlodipine, Chief Complaint No complaint. Disposition Transported No Lights/[place] Dispatch Reason No Other Appropriate Choice Transported To [address] [address] EMS Patient Care Report Name: EVER COUGHLIN Room #: REHAN Meza#: [id number] Admission: 03/02/20 Attend Phys: Discharge: Date of : 54 Report #: [id number] HISTORY. EMS was activated because pt pulled out her feeding tube. Pt has a history of a TBI and randomly pulls on anything close to her fingers. No recent illness or injury. ASSESSMENT INDICATED IN CHART. TREATMENT. Pt was lifted to EMS cot via sheet lift. Pt is on blow by O2 and that is continued during transport. No additional. TRANSPORT. [facility] is destination. [facility] is contacted. Information is given to staff. VS monitored. No change. DISPOSITION. Pt is lifted to ED bed via sheet lift. Report and paperwork is given to nursing. M 1144 is clear. Initial Vitals @23:14P: 104,R: 20,BP: 139/82,Pain: 0/10,GCS: 9,SpO2: 97,Revised Trauma: 11, @23:33P: 105,R: 20,BP: 118/65,Pain: 0/10,GCS: 9,SpO2: 98,Revised Trauma: 11, Assessments @23:48MENTAL:Other,SKIN:HEENT:Neck/Airway: Other,LUNG SOUNDS:ABDOMEN:PELVIS//GI:EXTREMITIES:Left Arm: Other,Right Arm: Other,PULSE:Radial: 2+ Normal,NEURO: Impression No Complaints or Injury/Illness Noted Procedures @23:47Oxygen FlowRate: 3 Device: Blow-By Response: UnchangedSucceeded Timeline 22:56,Call Received 22:56,Psap Call 23:00,Dispatched 23:01,En Route 23:07,On Scene 23:12,At Patient 23:14,BP: 139/82 M,PULSE: 104,RR: 20 R,SPO2: 97 Ox,ETCO2: ,BG: ,PAIN: 0,GCS: 9, 23:27,Depart Scene 23:33,BP: 118/65 M,PULSE: 105,RR: 20 R,SPO2: 98 Ox,ETCO2: ,BG: ,PAIN: 0,GCS: 9, 23:35,At Destination 23:47,Oxygen FlowRate: 3 Device: Blow-By Response: UnchangedSucceeded, 23:58,Call Closed Disclaimer v1.1 Copyright 2020 [employer] [facility] [address] [place] [address] EMS Patient Care Report Name: COUGHLINEVER Room #: REG ADYRAN Meza#: [id number] Admission: 03/02/20 Attend Phys: Discharge: Date of : 54 Report #: [id number] This EMS Care Summary contains data elements from the applicable legal record (which may be displayed differently). It is designed to provide pertinent information for the following purposes: continuity of care, clinical quality, and state data reporting. The complete legal record is available to ED staff and administrators of the receiving hospital in [employer]'s Patient Tracker. All data is provided "as is."
[2020-03-03 02:13] VITALS: BP 132/80
== END 2020-03-03 02:15 ==
LOC: ER 23:39
DX: Z43.1 Encounter for attention to gastrostomy (principal); E11.9 Type 2 diabetes mellitus without complications; Z79.4 Long term (current) use of insulin; Z79.899 Other long term (current) drug therapy; Z88.2 Allergy status to sulfonamides; Z88.8 Allergy status to other drugs, medicaments and biological substances; Z91.048 Other nonmedicinal substance allergy status

== ENCOUNTER 2020-03-24 03:44 | Emergency (ER) | payer OTHER ==
[~2020-03-24] VITALS: Ht 177.8 cm; Wt 81.7 kg
--- NOTE | ~2020-03-24 | EMS ---
[address] [address] EMS Patient Care Report Name: EVER COUGHLIN Room #: REG ADRYAN Meza#: [id number] Admission: 03/24/20 Attend Phys: Discharge: Date of : 54 Report #: [id number] THIS REPORT FOR: //name// Report Transmitted: 03/24/2020 03:07 EMS Care Summary [facility] MED-ACT Incident [id number] @ 03/24/2020 03:00 Incident Location [address] [place] [address] Patient EVRE COUGHLIN Female, 69 Years 1950 Patient Address [address] [place] [address] Patient History Epilepsy,Tracheostomy,Past Traumatic Brain Injury,Hypothyroidism,Type 1 Diabetes,G-Tube, Patient Allergies Sulfa,Adhesive Tape,Compazine, Patient Medications Amlodipine, Levothyroxine, Levemir, Potassium, Humalog, Acetaminophen, Famotidine, Atropine, DuoNeb, Chief Complaint "she pulled out her G-tube" Disposition Transported No Lights/[place] Dispatch Reason Sick Person Transported To [facility] Narrative [address] [address] EMS Patient Care Report Name: EVER COUGHLIN Room #: REG ADRYAN Meza#: [id number] Admission: 03/24/20 Attend Phys: Discharge: Date of : 54 Report #: [id number] EMS dispatched to a local nursing facility. Upon arrival, EMS is guided to the patient's room. Upon entering, the patient has a significant cough and mucus plug that needs to be suctions. It's asked that the nursing staff development coordinator suction pt before transfer. Upon questioning the staff about the patient's medical history and current condition, they are unable to relay basic information and relay multiple times that they are unfamiliar with the patient, that they usually aren't on that floor and "I just got here". In addition, it's asked if the patient is able to ventilate herself or if she needs assistance and they relay "we're not sure". Once the basic airway precautions are taken, they relay the reason for the call is because the patient pulled out her peg tube. However, an RN was able to replace it, but they state it's their policy not replace it and to send the patient out to make sure it's placed correctly. Shortly after this conversation, an RN relays "why are we sending her out then". The other staff members relays "just do it because it's our policy, we will talk about this later". Again, EMS confirms we are in fact transferring the patient they state "yes". The patient is moved to cot where secured and vitals are performed. The patient is moved to MICU where secured and secondary assessment is performed on pt with vitals en route to local hospital without change in condition. Report is given to RN and care is transferred without incident. Initial Vitals @03:35P: 156,SpO2: 93,SD Suspected: false @03:29P: 92,R: 16,BP: 116/76,Pain: 0/10,GCS: 15,SpO2: 94,Revised Trauma: 12, @03:36P: 90,R: 16,BP: 115/71,Pain: 0/10,GCS: 15,SpO2: 99,Revised Trauma: 12, Assessments @03:36MENTAL:Other,SKIN:HEENT:Head/Face: No Abnormalities,LUNG SOUNDS:General: No Abnormalities,ABDOMEN:General: No Abnormalities,PELVIS//GI:EXTREMITIES:Left Arm: No Abnormalities,Right Arm: No Abnormalities,Left Leg: No Abnormalities,Right Leg: No Abnormalities,PULSE:NEURO:No Abnormalities,@MOVIE PRODUCER Impression No Complaints or Injury/Illness Noted Timeline 02:58,Call Received 02:58,Psap Call 03:00,Dispatched 03:02,En Route 03:09,On Scene 03:13,At Patient [address] [place] [address] EMS Patient Care Report Name: EVER COUGHLIN Room #: REG ER Derrick#: [id number] Admission: 03/24/20 Attend Phys: Discharge: Date of : 54 Report #: [id number] 03:29,BP: 116/76 M,PULSE: 92,RR: 16 R,SPO2: 94 Ox,ETCO2: ,BG: ,PAIN: 0,GCS: 15, 03:30,Depart Scene 03:35,BP: / M,PULSE: 156,RR: R,SPO2: 93 Ox,ETCO2: ,BG: ,PAIN: ,GCS: , 03:36,BP: 115/71 M,PULSE: 90,RR: 16 R,SPO2: 99 Ox,ETCO2: ,BG: ,PAIN: 0,GCS: 15, 03:39,At Destination 04:00,Call Closed Disclaimer v1.1 Copyright 2020 [employer] This EMS Care Summary contains data elements from the applicable legal record (which may be displayed differently). It is designed to provide pertinent information for the following purposes: continuity of care, clinical quality, and state data reporting. The complete legal record is available to ED staff and administrators of the receiving hospital in [employer]'s Patient Tracker. All data is provided "as is."
[2020-03-24 05:30] VITALS: BP 138/67
== END 2020-03-24 05:30 ==
LOC: ER 03:44
DX: K94.23 Gastrostomy malfunction (principal); E11.9 Type 2 diabetes mellitus without complications; Z79.4 Long term (current) use of insulin; Z79.899 Other long term (current) drug therapy; Z88.2 Allergy status to sulfonamides; Z88.8 Allergy status to other drugs, medicaments and biological substances; Z91.048 Other nonmedicinal substance allergy status

== ENCOUNTER 2020-03-24 19:23 | Emergency (ER) | payer OTHER ==
[~2020-03-24] VITALS: Ht 172.7 cm; Wt 95.3 kg
--- NOTE | ~2020-03-24 | EMS ---
[address] [address] EMS Patient Care Report Name: EVER COUGHLIN Room #: DEP ADRYAN Meza#: [id number] Admission: 03/24/20 Attend Phys: Discharge: 03/24/20 Date of : 54 Report #: [id number] THIS REPORT FOR: //name// Report Transmitted: 03/24/2020 22:09 EMS Care Summary [facility] MED-ACT Incident [id number] @ 03/24/2020 18:52 Incident Location [address] [place] [address] Patient EVER COUGHLIN Female, 69 Years 1950 Patient Address [address] [place] [address] Patient History Epilepsy,Tracheostomy,Past Traumatic Brain Injury,Hypothyroidism,Type 1 Diabetes,G-Tube, Patient Allergies Sulfa,Adhesive Tape,Compazine, Patient Medications Potassium, Acetaminophen, Amlodipine, Levothyroxine, Levemir, Humalog, Famotidine, DuoNeb, Atropine, Chief Complaint Dislodged G tube Disposition Transported No Lights/[place] Dispatch Reason Sick Person Transported To [facility] Narrative [address] [address] EMS Patient Care Report Name: EVER COUGHLIN Room #: DEP Derrick#: [id number] Admission: 03/24/20 Attend Phys: Discharge: 03/24/20 Date of : 54 Report #: [id number] Pt found lying supine in hospital bed in no apparent distress wearing a protective helmet and a Vaseline gauze covering the area where her G tube had become dislodged for the second time today. Pt was prepared for transport and dislodged G tube was packaged for transport with the Pt. Pt was moved to the ambulance without incident. EMS alerted [facility] [employer] system detective captain. Pt delivered to ER bed 1 without change. EMS secured pt into hospital bed and gave report to receiving RN transferring care and pt to hospital staff. Initial Vitals @19:13P: 103,R: 18,BP: 126/71,Pain: 0/10,GCS: 12,SpO2: 96,Revised Trauma: 11, Assessments @19:08MENTAL:Confused,SKIN:HEENT:Eyes: Left Pupil: 3-mm,Neck/Airway: Other,Eyes: Right Pupil: 3-mm,Head/Face: No Abnormalities,LUNG SOUNDS:Left Upper: Other,General: No Abnormalities,ABDOMEN:Left Upper: Other,General: No Abnormalities,PELVIS//GI:No Abnormalities,EXTREMITIES:Left Arm: No Abnormalities,Right Arm: No Abnormalities,Left Leg: No Abnormalities,Right Leg: No Abnormalities,PULSE:Radial: 2+ Normal,NEURO:No Abnormalities, Impression Acute abdomen Timeline 18:50,Call Received 18:50,Psap Call 18:52,Dispatched 18:53,En Route 19:01,On Scene 19:04,At Patient 19:13,Depart Scene 19:13,BP: 126/71 M,PULSE: 103,RR: 18 R,SPO2: 96 Ox,ETCO2: ,BG: ,PAIN: 0,GCS: 12, 19:20,At Destination 19:35,Call Closed Disclaimer v1.1 Copyright 2020 [employer] This EMS Care Summary contains data elements from the applicable legal record (which may be displayed differently). It is designed to provide pertinent information for the following purposes: continuity of care, clinical quality, and state data reporting. The complete legal record is available to ED staff and administrators of the receiving hospital in [employer]'s Patient Tracker. All data is provided "as is."
[2020-03-24 22:19] VITALS: BP 148/72
== END 2020-03-24 22:29 | disposition home or self-care (01) ==
LOC: ER 19:23
DX: Z43.1 Encounter for attention to gastrostomy (principal); E11.9 Type 2 diabetes mellitus without complications; Z79.4 Long term (current) use of insulin; Z79.899 Other long term (current) drug therapy; Z88.2 Allergy status to sulfonamides; Z91.048 Other nonmedicinal substance allergy status; Z88.8 Allergy status to other drugs, medicaments and biological substances

== ENCOUNTER 2020-03-25 22:49 | Emergency (ER) | payer OTHER ==
[~2020-03-25] VITALS: Ht 152.4 cm; Wt 113.4 kg
--- NOTE | ~2020-03-25 | EMS ---
[address] [address] EMS Patient Care Report Name: EVER COUGHLIN Room #: REG ADRYAN Meza#: [id number] Admission: 03/25/20 Attend Phys: Discharge: Date of : 54 Report #: [id number] THIS REPORT FOR: //name// Report Transmitted: 03/25/2020 22:19 EMS Care Summary [facility] MED-ACT Incident [id number] @ 03/25/2020 22:14 Incident Location [address] [place] [address] Patient EVER COUGHLIN Female, 69 Years 1950 Patient Address [address] [place] [address] Patient History Epilepsy,Tracheostomy,Past Traumatic Brain Injury,Hypothyroidism,Type 1 Diabetes,G-Tube, Patient Allergies Sulfa,Adhesive Tape,Compazine, Patient Medications Levemir, DuoNeb, Potassium, Famotidine, Humalog, Amlodipine, Acetaminophen, Levothyroxine, Atropine, Chief Complaint G Tube removed Disposition Transported No Lights/[place] Dispatch Reason Sick Person Transported To [facility] Narrative [address] [address] EMS Patient Care Report Name: EVER COUGHLIN Room #: REG ADRYAN Meza#: [id number] Admission: 03/25/20 Attend Phys: Discharge: Date of : 54 Report #: [id number] C - G tube was removed by the patient. H - M1Mary was dispatched to a local custodial facility on a C3 sick person. Calista arrived on scene to find Ms. Coughlin a 69 y/o female found in semi neri position in her hospital style bed. The patient had her eye's open but she was unable to communicate or follow commands which are all baseline for the patient. Staff located on scene reported that the patient pulled out her G tube before our arrival and is in need of transport to the hospital. Staff reported that the patient continually grabs and flails with her arms and has continued to pull out her G tube. Staff reported that this is the third time in two days that the patient has removed her G tube. Staff reported no other complaints or changes involving the patient. R - Initial assessment, physical examination, V/s, pt. moved over to stretcher, continued reassessment. T - No change was noted in the patient's V/s, presentation, or overall affect during transport. The patient was moved over into bed in ED room via sheet drag without incident with report given to ED RN. Initial Vitals @22:41P: 104,R: 14,BP: 131/65,GCS: 6,SpO2: 96,Revised Trauma: 10, @22:35P: 109,R: 12,BP: 155/127,GCS: 6,SpO2: 96,Revised Trauma: 10, Assessments @22:27MENTAL:Unresponsive,SKIN:HEENT:Neck/Airway: Other,Head/Face: No Abnormalities,LUNG SOUNDS:Left Upper: Other,ABDOMEN:Left Upper: Other,PELVIS//GI:EXTREMITIES:PULSE:NEURO:Other, Impression angular js developer failure Timeline 22:11,Call Received 22:11,Psap Call 22:14,Dispatched 22:14,En Route 22:22,On Scene 22:26,At Patient 22:35,BP: 155/127 M,PULSE: 109,RR: 12 R,SPO2: 96 Ox,ETCO2: ,BG: ,PAIN: ,GCS: 6, 22:36,Depart Scene 22:41,BP: 131/65 M,PULSE: 104,RR: 14 R,SPO2: 96 Ox,ETCO2: ,BG: ,PAIN: ,GCS: 6, 22:43,At Destination 23:00,Call Closed [facility] [address] [place] [address] EMS Patient Care Report Name: EVER COUGHLIN Room #: REG [facility].#: [id number] Admission: 03/25/20 Attend Phys: Discharge: Date of : 54 Report #: [id number] Disclaimer v1.1 Copyright 2020 [employer] This EMS Care Summary contains data elements from the applicable legal record (which may be displayed differently). It is designed to provide pertinent information for the following purposes: continuity of care, clinical quality, and state data reporting. The complete legal record is available to ED staff and administrators of the receiving hospital in [employer]'s Patient Tracker. All data is provided "as is."
[2020-03-26 01:11] VITALS: BP 133/83
== END 2020-03-26 00:38 | disposition home or self-care (01) ==
LOC: ER 22:49
DX: Z43.1 Encounter for attention to gastrostomy (principal); E11.9 Type 2 diabetes mellitus without complications; Z79.4 Long term (current) use of insulin; Z79.899 Other long term (current) drug therapy; Z88.2 Allergy status to sulfonamides; Z88.8 Allergy status to other drugs, medicaments and biological substances; Z91.048 Other nonmedicinal substance allergy status

== ENCOUNTER 2020-03-27 15:10 | Emergency (ER) | payer OTHER ==
[~2020-03-27] VITALS: Ht 167.6 cm; Wt 97.5 kg
--- NOTE | ~2020-03-27 | EMS ---
[facility] [address] [place] [address] EMS Patient Care Report Name: EVER COUGHLIN Room #: DEP ADRYAN Meza#: [id number] Admission: 03/27/20 Attend Phys: Discharge: 03/27/20 Date of : 54 Report #: [id number] THIS REPORT FOR: //name// Report Transmitted: 03/27/2020 20:43 EMS Care Summary [facility] MED-ACT Incident [id number] @ 03/27/2020 14:21 Incident Location [address] [place] [address] Patient EVER COUGHLIN Female, 69 Years 1950 Patient Address [address] [place] [address] Patient History Epilepsy,Neurological Condition - Other,Tracheostomy,Past Traumatic Brain Injury,Hypothyroidism,Type 1 Diabetes,Chronic Respiratory Failure,G-Tube,Respiratory Failure, Patient Allergies Sulfa,Adhesive Tape,Compazine, Patient Medications Levothyroxine, Levemir, Potassium, Famotidine, Humalog, DuoNeb, Amlodipine, Acetaminophen, Atropine, Chief Complaint Patient pulled out her PEG tube Disposition Transported No Lights/[place] Dispatch Reason Sick Person Transported To [facility] Narrative [facility] [address] [place] [address] EMS Patient Care Report Name: EVER COUGHLIN Room #: DEP Derrick#: [id number] Admission: 03/27/20 Attend Phys: Discharge: 03/27/20 Date of : 54 Report #: [id number] INITIAL: Patient found supine in bed in no obvious distress. HPI: Patient has a history of traumatic brain injury. Nursing staff report that the patient is acting normal for herself - nonverbal, eyes open but does not track, does not obey commands. Because of her condition, she pulled out her PEG tube. This has occurred 3 times this week. Nursing staff report that the patient needs to be transferred to "whatever hospital she went to last time." Paperwork indicate that the patient uses [facility]. Nursing staff report that they were unaware of other non-emergency transport services such as [facility] and [facility], but agreed that those would be appropriate transport options for this patient. Staff reported no other problems/complaints with the patient. PLAN: Vitals, history, assessment, moved patient to cot and moved to back of ambulance. Transported non-emergency to [facility]. Patient remained stable during transport. Transferred patient to ER nurse in room 2. Initial Vitals @14:48P: 86,R: 16,BP: 122/65,Pain: 0/10,GCS: 10,SpO2: 96,Revised Trauma: 11,[place] Suspected: false @15:04P: 90,R: 14,BP: 118/51,Pain: 0/10,GCS: 10,SpO2: 96,Revised Trauma: 11,[place] Suspected: false Assessments @14:35MENTAL:SKIN:HEENT:Neck/Airway: Other,LUNG SOUNDS:ABDOMEN:PELVIS//GI:EXTREMITIES:PULSE:Radial: 2+ Normal,NEURO: Impression Gastrostomy malfunction Timeline 14:19,Call Received 14:19,Psap Call 14:21,Dispatched 14:22,En Route 14:30,On Scene 14:34,At Patient 14:48,BP: 122/65 M,PULSE: 86,RR: 16 R,SPO2: 96 Ox,ETCO2: ,BG: ,PAIN: 0,GCS: 10, 14:56,Depart Scene 15:04,BP: 118/51 M,PULSE: 90,RR: 14 R,SPO2: 96 Ox,ETCO2: ,BG: ,PAIN: 0,GCS: 10, 15:04,At Destination 15:19,Call Closed Disclaimer v1.1 Copyright 2020 [employer] [address] [address] EMS Patient Care Report Name: EVER COUGHLIN Room #: DEP Derrick#: [id number] Admission: 03/27/20 Attend Phys: Discharge: 03/27/20 Date of : 54 Report #: [id number] This EMS Care Summary contains data elements from the applicable legal record (which may be displayed differently). It is designed to provide pertinent information for the following purposes: continuity of care, clinical quality, and state data reporting. The complete legal record is available to ED staff and administrators of the receiving hospital in [employer]'s Patient Tracker. All data is provided "as is."
[2020-03-27 18:13] VITALS: BP 142/80
== END 2020-03-27 19:00 | disposition home or self-care (01) ==
LOC: ER 15:10
DX: K94.23 Gastrostomy malfunction (principal); E11.9 Type 2 diabetes mellitus without complications; Z88.2 Allergy status to sulfonamides; Z79.2 Long term (current) use of antibiotics; Z79.899 Other long term (current) drug therapy; Z88.8 Allergy status to other drugs, medicaments and biological substances; Z98.890 Other specified postprocedural states; Z87.820 Personal history of traumatic brain injury; Z85.850 Personal history of malignant neoplasm of thyroid

== ENCOUNTER 2020-05-13 09:43 | Inpatient (IN) | payer OTHER ==
[~2020-05-13] VITALS: Ht 167.6 cm; Wt 90.0 kg
--- NOTE | ~2020-05-13 | EMS ---
[address] [address] EMS Patient Care Report Name: EVER COUGHLIN Room #: PRE ADRYAN Meza#: [id number] Admission: Attend Phys: Discharge: Date of : 54 Report #: [id number] THIS REPORT FOR: //name// Report Transmitted: 05/13/2020 09:25 EMS Care Summary [facility] MED-ACT Incident [id number] @ 05/13/2020 09:00 Incident Location [address] [place] [address] Patient EVER COUGHLIN Female, 69 Years 1950 Patient Address [address] [place] [address] Patient History Epilepsy,Neurological Condition - Other,Tracheostomy,Past Traumatic Brain Injury,Hypothyroidism,Type 1 Diabetes,Chronic Respiratory Failure,G-Tube,Respiratory Failure, Patient Allergies Sulfa,Adhesive Tape,Compazine, Patient Medications Levemir, Humalog, Atropine, DuoNeb, Acetaminophen, Potassium, Levothyroxine, Famotidine, Amlodipine, Chief Complaint Low sats Disposition Transported No Lights/[place] Dispatch Reason Sick Person Transported To [address] [address] EMS Patient Care Report Name: EVER COUGHLIN Room #: PRE Lai.#: [id number] Admission: Attend Phys: Discharge: Date of : 54 Report #: [id number] Narrative [id number] dispatched for a 69 y/o female at [facility]. Pt is COVID Positive. Arrived on scene, pt contact made in pt room. Pt, who is a special needs pt who has a hx of seizures, traumatic brain injury who breaths via a trach. Pt has a GCS of 10, per her norm. Pt initially tested negative for several days after her roommate tested positive one week prior but a positive test for the pt came back today. Pt has been spiking a temp, treated with Tylenol which would bring down temp for a short period of time. Pt's O2 sats via O2 on her trach were also in decline. Assessment and vitals documented above. Moved pt over via 3 person lift and move. Noted increased effort in breathing, suctioned pt which improved sats and respiratory effort considerably. Secured to cot and moved to back of unit. Enroute to [facility] per hospital request. 4 lead revealed sinus rhythm, secondary vitals documented above. 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 No changes enroute. Arrived at [facility], moved pt inside via cot transport. Onto ER bed via 3 person lift and move. Gave report to receiving RN and transferred care. Emmanuel Saucedo Head Shipper Initial Vitals @09:25P: 92,SpO2: 86, @09:27P: 88,BP: 107/72,Pain: 0/10,GCS: 10,SpO2: 98, @09:35P: 97,R: 18,BP: 110/67,Temp: 100.4F,SpO2: 98, Assessments @09:31MENTAL:Other,SKIN:Diaphoresis,Hot,HEENT:Head/Face: No Abnormalities,Neck/Airway: No Abnormalities,LUNG SOUNDS:General: No Abnormalities,ABDOMEN:General: No Abnormalities,PELVIS//GI:EXTREMITIES:Left Arm: No Abnormalities,Right Arm: No Abnormalities,Left Leg: No Abnormalities,Right Leg: No Abnormalities,PULSE:Radial: 2+ Normal,NEURO:No Abnormalities, Impression COVID-19 - Confirmed by testing Procedures @09:34ALS AssessmentResponse: UnchangedSucceeded@09:293-Lead ECGResponse: UnchangedSucceeded@09:27Oxygen FlowRate: 15 Device: Bag Valve Mask (BVM) Response: UnchangedSucceeded Timeline 08:58,Call Received 08:58,[place] [address] EMS Patient Care Report Name: MADYSONEVER Room #: [facility] M.R.#: [id number] Admission: Attend Phys: Discharge: Date of : 54 Report #: [id number] 09:00,Dispatched 09:01,En Route 09:07,On Scene 09:10,At Patient 09:25,BP: / M,PULSE: 92,RR: R,SPO2: 86 Ox,ETCO2: ,BG: ,PAIN: ,GCS: , 09:27,Oxygen FlowRate: 15 Device: Bag Valve Mask (BVM) Response: UnchangedSucceeded, 09:27,BP: 107/72 M,PULSE: 88,RR: R,SPO2: 98 Ox,ETCO2: ,BG: ,PAIN: 0,GCS: 10, 09:28,Depart Scene 09:29,3-Lead ECG,Response: UnchangedSucceeded, 09:34,ALS Assessment,Response: UnchangedSucceeded, 09:35,BP: 110/67 M,PULSE: 97,RR: 18 R,SPO2: 98 Ox,ETCO2: ,BG: ,PAIN: ,GCS: , 09:37,At Destination 09:41,Transfer Patient 10:05,Call Closed Disclaimer v1.1 Copyright 2020 [employer] This EMS Care Summary contains data elements from the applicable legal record (which may be displayed differently). It is designed to provide pertinent information for the following purposes: continuity of care, clinical quality, and state data reporting. The complete legal record is available to ED staff and administrators of the receiving hospital in ES's Patient Tracker. All data is provided "as is."
[2020-05-13 09:54] VITALS: BP 111/52
[2020-05-13 10:10] LABS: HEMATOCRIT 36.9 % (37.0-47.0); HEMOGLOBIN 12.2 gm/dL (12.0-15.0); MCH 28.5 pg (26.0-34.0); MCV 86.2 fL (80.0-100.0); PLATELET COUNT 220 thou/uL (150-400); RBC 4.28 mil/uL (4.20-5.00); RDW 15.2 % (10.5-14.5); WBC 15.1 thou/uL (4.0-11.0)
--- NOTE | 2020-05-13 10:20 | NUR ---
RT AT BEDSIDE TO SUCTION, TRACHE CARE AND TX
[2020-05-13 10:21] LABS: CALCIUM 8.3 mg/dL (8.5-10.1); CREATININE 0.7 mg/dL (0.6-1.0)
[2020-05-13 10:23] LABS: POTASSIUM 5.2 mmol/L (3.5-5.1)
[2020-05-13 10:25] LABS: ALBUMIN 2.5 g/dL (3.4-5.0); DIRECT BILIRUBIN 0.1 mg/dL (<0.1-0.2); TOTAL BILIRUBIN 0.5 mg/dL (0.2-1.0); TOTAL PROTEIN 6.4 g/dL (6.4-8.2)
[2020-05-13 10:59] LABS: BE(vivo) -0.2 mmol/L (-2 to +3); HCO3 23.2 mmol/L (22.0-26.0); PCO2 33.7 mmHg (35.0-45.0); PO2 61.8 mmHg (80.0-100.0); pH 7.455 (7.360-7.450)
[2020-05-13 11:08] LABS: ABSOLUTE NEUTROPHILS 13.7 thou/uL (1.4-8.2); ANISOCYTOSIS SLIGHT
[2020-05-13] MEDS ORDERED: LEVAMIR SUBQ (11:09)
[2020-05-13] MEDS ORDERED: VITAMIN C500 MG/15 PO (11:10)
[2020-05-13] MEDS ORDERED: TRANSDERM-SCOP1 EACH TOP (11:11)
[2020-05-13] MEDS ORDERED: PEG3350510 GM PER TUBE (11:12)
--- NOTE | 2020-05-13 12:15 | NUR ---
RT called to suction trach
--- NOTE | 2020-05-13 13:39 | NUR ---
TRACH SUCTIONED BY RT
[2020-05-13 14:18] VITALS: BP 116/69
--- NOTE | 2020-05-13 14:50 | NUR ---
SUCTIONED TRACH SMALL AMOUNT OF THICK YELLOW SPUTUM
[2020-05-13 15:07] VITALS: BP 116/69
[2020-05-13 15:52] LABS: URINE BILIRUBIN NEGATIVE (Negative); URINE BLOOD 3+ (Negative); URINE CLARITY SL CLOUDY; URINE COLOR YELLOW; URINE GLUCOSE-RANDOM* NEGATIVE (Negative); URINE KETONES NEGATIVE (Negative); URINE PROTEIN (DIPSTICK) 1+ (Negative); URINE UROBILINOGEN 0.2 E.U./dl (0.2-1.0)
[2020-05-13 15:53] LABS: URINE LEUKOCYTES-REFLEX 1+ (Negative); URINE NITRITE-REFLEX POSITIVE (Negative)
[2020-05-13 16:00] LABS: AMORPHOUS URATES Many /LPF (None Seen); BACTERIA-REFLEX 1-9 Few /HPF (None Seen); CASTS None Seen /LPF (None Seen); SQUAMOUS 4-10 Moderate /LPF (0-3); URINE RBC 3-10 Few /HPF (0-2); URINE WBC-REFLEX 0-5 Rare /HPF (0-5)
--- NOTE | 2020-05-13 16:40 | EKG ---
[facility] [place] [address] ELECTROCARDIOGRAM REPORT Name: EVER COUGHLIN Room #: 361- ADM IN M.R.#: [id number] Admission: 05/13/20 Attend Phys: Sixto Alvarado MD Discharge: Date of : 54 Report #: [id number] THIS REPORT FOR: cc: Srikanth Marsh MD, Shyam MD Santiago,Atif [facility] ~ THIS REPORT FOR: //name// [facility] ED Test Date: 2020-05-13 Test Time: 10:01:23 Pat Name: EVER COUGHLIN Department: Room: [facility] Gender: F Ticker Installer: KF : 1950 Requested By: Aaron Cordero Order Number: [id number] MD: Atif Hannah Measurements Intervals [place] Rate: 90 P: 45 LA: 154 QRS: 9 QRSD: 72 T: 13 QT: 354 QTc: 433 Interpretive Statements Sinus rhythm Probable left atrial enlargement Low voltage, precordial leads Compared to ECG 10/05/2017 11:05:45 Low QRS voltage now present Sinus tachycardia no longer present ST (T wave) deviation no longer present Prolonged QT interval no longer present Electronically Signed On 05-13-2020 16:39:48 CDT by Atif Hannah [email or web address] <ELECTRONICALLY SIGNED> By: Atif Hannah MD, [facility] 05/13/20 1639 00 00 Atif Hannah MD, [facility] /EPI
--- NOTE | 2020-05-13 19:40 | NUR ---
1645 PT ADMITTED ON 3W, ROOM 361, PT ALERT TO SELF, NONRESPONSIVE AND NONVERABLE. UNABLE TO ASSESS PAIN. PT HAS A TRACH WITH A SHIELD. PT IS PARAPLEGIC, RIGHT HAND FLACCID, AND LOWER EXTREMITIES CONTRACTURED. TELEMETRY PLACED ON PT, SR. PT IS INCONTINENT, ECTERNAL CATHETER PLACED. PT UNABLE TO SIGNS CONSENT, , GI[facility]NA CALLED AND TELEPHONE CONSENT RECEIVED AND LGADIS CHRIS WITNESSED. G TUBE IN PLACE. PT REPOSITIONED EVERY [address] PRECAUTIONS IN PL[address]. REPORT GIVEN TO [employer] [place] FOR DIGITAL MEDIA DESIGNER.
[2020-05-13 20:10] VITALS: BP 105/26
[2020-05-14 00:07] VITALS: BP 118/77
--- NOTE | 2020-05-14 03:11 | NUR ---
Patient working towards outcome goals Oxygen per trach shield. Large amounts to yellow to creamy to tannish secretions. Vital signs and rhythm stable. Patient is awake and non verbal. Has made frequent attenmpt to pull of gown, monitor, peg tube and trach tubing. Orders received for soft wrist restraints. Kept NPO. Peg site red, non draining, flushes well. Incontinent of urine with external femal catheter which worked most of the time. Orders received for Remdesevir and convalescet plasma. Remdesevir give. Patients spouse and guardian Mitchel Madden notified of need to place patient on restraints and gave verbal consent to transfuse plasma. Very hard IV stick, multiple attempts to start IV for multiple medications.
[2020-05-14 05:08] VITALS: BP 120/82
[2020-05-14 06:25] LABS: ABSOLUTE NEUTROPHILS 12.3 thou/uL (1.4-8.2); BASOPHILS 0.3 % (0.0-2.0); EOSINOPHILS 0.1 % (0.0-3.0); HEMATOCRIT 42.3 % (37.0-47.0); HEMOGLOBIN 13.6 gm/dL (12.0-15.0); LYMPHOCYTES 3.8 % (24.0-44.0); MCH 28.7 pg (26.0-34.0); MCHC 32.2 g/dL (28.0-37.0); MCV 89.2 fL (80.0-100.0); MONOCYTES 1.1 % (1.0-8.0); PLATELET COUNT 189 thou/uL (150-400); POLYS 94.7 % (36.0-66.0); RBC 4.75 mil/uL (4.20-5.00); RDW 15.1 % (10.5-14.5); WBC 15.2 thou/uL (4.0-11.0)
[2020-05-14 06:29] LABS: FIBRINOGEN 344.7 mg/dL (210-360); PROTIME 10.7 Seconds (9.3-11.4)
[2020-05-14 07:15] VITALS: BP 120/67; BP 131/66
[2020-05-14 07:19] LABS: ALBUMIN 2.3 g/dL (3.4-5.0); CALCIUM 8.1 mg/dL (8.5-10.1); CREATININE 0.5 mg/dL (0.6-1.0); POTASSIUM 4.1 mmol/L (3.5-5.1); TOTAL BILIRUBIN 0.5 mg/dL (0.2-1.0); TOTAL PROTEIN 6.4 g/dL (6.4-8.2)
[2020-05-14 08:28] VITALS: BP 124/60
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
[2020-05-14 17:05] VITALS: BP 113/51
[2020-05-14 19:46] VITALS: BP 126/66
[2020-05-15 03:42] VITALS: BP 122/47
--- NOTE | 2020-05-15 04:17 | NUR ---
ASSUMED CARE OF PT AT 1900HRS. PT IS ALERT BUT NON-VERBAL. FALL PRECAUTION IN PLACE. EXTERNAL FEMALE CATH IN PLACE. PT TURNED Q2H. LEFT WRIST RESTRAINT IN PLACE DUE TO PT PULLING LINES. TRACH MASK IN PLACE AND SUCTIONED NEEDED. TF IS AT GOAL RATE OF 62ML/HR. NO RESIDUAL NOTED. G TUBE FLUSHED WITH 2OOML H2O Q4H. PT HAD A MEDIUM SIZED BM THIS SHIFT. PT APPEARS TO BE COMFORTABLE. ABX TREATMENT CONTINUED. VSS AND NO S.S OF ACUTE DISTRESS. WILL CONTINUE TO MONITOR FOR CHANGES.
[2020-05-15 07:32] VITALS: BP 102/70
[2020-05-15 11:28] VITALS: BP 103/38
--- NOTE | 2020-05-15 14:24 | NUR ---
SPOKE WITH DR. SUE, STATES OK TO GIVE VANCO WHEN TROUGH LEVEL AT 16. VANCO TO BE GIVEN ORDERED
[2020-05-15 15:22] VITALS: BP 143/68
--- NOTE | 2020-05-15 16:29 | NUR ---
NO WEEKEND DISHCARGE ANTICPATED. CARE TEAM INDICATED THAT PT MAY BE MEDICALLY STABLE TO RETURN TO OP [facility]ENTER IF THEY ARE ABLE TO ACCEPT THE BEGINING OF NEXT. CM TO FOLLOW INDICATED WITH DC PLANNING.
--- NOTE | 2020-05-15 16:47 | NUR ---
ASSUMED PATIENT CARE THIS SHIFT AT APPROXIMATELY 0700. PATIENT IS AWAKE BUT ONLY RESPONDS TO TOUCH/PAINFUL STIMULI. PATIENT TOLERATING 15L T-TUBE VIA TRACH. MODERATE-LARGE AMOUNT OF SECRETIONS NOTED AND REQUIRED FREQUENT SUCTIONING. TOLERATED FEEDINGS WELL THIS SHIFT. NO RESIDUALS NOTED THIS SHIFT. TURNED IN BED Q2H. LEFT ARM IN WRIST RESTRAINT. WITHOUT ANY SWELLING OR INJURY NOTED TO EXTREMITY. PULSES 2+ BILATERALLY TO ARMS. LEGS ELEVATED ON PILLOW THROUGHOUT SHIFT. MEDS AND ASSESSMENTS CHARTED.
[2020-05-15 20:32] VITALS: BP 145/65
[2020-05-16 00:30] VITALS: BP 154/61
[2020-05-16 03:00] VITALS: BP 150/54
--- NOTE | 2020-05-16 04:07 | NUR ---
PT PROGRESSING SLOWLY TOWARDS D/C GOALS. VSS. PT UR, EYES OPEN SPONTANEOUSLY. LUNGS COARSE AT BASES. UNLABORED ON CURRENT TRACH SETTINGS. POC REVIEWED. TF INFUSING WITHOUT DIFFICULTY.
[2020-05-16 06:47] LABS: ALBUMIN 2.2 g/dL (3.4-5.0); CALCIUM 7.9 mg/dL (8.5-10.1); CREATININE 0.5 mg/dL (0.6-1.0); DIRECT BILIRUBIN 0.1 mg/dL (<0.1-0.2); TOTAL BILIRUBIN 0.4 mg/dL (0.2-1.0); TOTAL PROTEIN 5.7 g/dL (6.4-8.2)
[2020-05-16 06:50] LABS: POTASSIUM 2.9 mmol/L (3.5-5.1)
[2020-05-16 07:17] VITALS: BP 147/70
[2020-05-16 11:33] VITALS: BP 147/76
[2020-05-16 15:30] VITALS: BP 156/57
[2020-05-16 19:24] VITALS: BP 154/68
[2020-05-17 00:27] VITALS: BP 151/84
--- NOTE | 2020-05-17 01:25 | NUR ---
PT PROGRESSING SLOWLY TOWARDS D/C GOALS. VSS. LOW GRADE TEMP 99.LUNGS SOUND SLIGHTLY COARSE WITH SOME WHEEZES. SUCTIONING PT PRN. MODERATE AMTS THICK AMOUNTS SPUTUM NOTED. SATS WNL. PTINC OF URINE PURE WICK INTACT DRAINING CLEAR YELLOW URINE. MOISTURE BARRIER APPLIED TO VUTTOCKS. TURNING PT Q 2 HRS. BED DPWN BED ALARM IS ON.
[2020-05-17 03:44] VITALS: BP 136/81
[2020-05-17 04:44] LABS: CALCIUM 7.7 mg/dL (8.5-10.1); CREATININE 0.5 mg/dL (0.6-1.0); MAGNESIUM 1.8 mg/dL (1.8-2.4); POTASSIUM 3.3 mmol/L (3.5-5.1)
[2020-05-17 04:51] LABS: ALBUMIN 2.3 g/dL (3.4-5.0); DIRECT BILIRUBIN 0.2 mg/dL (<0.1-0.2); TOTAL BILIRUBIN 0.5 mg/dL (0.2-1.0)
[2020-05-17 05:16] LABS: HEMATOCRIT 39.4 % (37.0-47.0); HEMOGLOBIN 12.9 gm/dL (12.0-15.0); MCH 28.5 pg (26.0-34.0); MCHC 32.6 g/dL (28.0-37.0); MCV 87.3 fL (80.0-100.0); RBC 4.52 mil/uL (4.20-5.00); RDW 14.9 % (10.5-14.5); WBC 6.8 thou/uL (4.0-11.0)
[2020-05-17 08:46] VITALS: BP 134/65
[2020-05-17 11:45] VITALS: BP 137/71
--- NOTE | 2020-05-17 15:38 | NUR ---
PT IS [facility] AND PLAN IS TO RETURN MON OR TUES...
[2020-05-17 16:00] VITALS: BP 128/58
[2020-05-17 21:32] VITALS: BP 125/75
--- NOTE | 2020-05-18 01:12 | NUR ---
Pt progressing slowly towards d/c goals. VSS. Lungs sound slightly coarse. suction modertate amounts of thick christianson sputum. Trach care done. Peg care done. Oral care done. Pt inc of urine and stool. New pure wick applied. Moisture barrier applied to buttocks. Repositioning pt q 2 hrs. Tf infusing without difficulty. No s/s distress. No s/s sz activity. Side rails padded.
[2020-05-18 03:12] VITALS: BP 158/78
--- NOTE | 2020-05-18 06:42 | NUR ---
PT RESTING QUIELTLY NO S/S DISTRESS VSS THIS AM. MOISTURE BARRIER APPLIED. PT REPOSITIONED Q 2 HRS. PURE WICK INTACT. NO TF RESIDUALS. .
[2020-05-18 07:27] VITALS: BP 142/72
[2020-05-18 12:02] VITALS: BP 145/74
[2020-05-18 15:09] VITALS: BP 134/63
--- NOTE | 2020-05-18 16:12 | NUR ---
NADIA reviewed chart and spoke with nursing. Pt remains in Enhanced Isolation due to COVID-19. Pt is s/p plasma and Remdesivir. Pt is afebrile and on trach shield. Pt is on IV abx and IV steroids. Pt is progressing towards goals for discharge. NADIA faxed updated clinical info to [facility] for review and notified liaison of anticipated discharge. Pt will return to the COVID unit. NADIA spoke with pt's , Donnie, via phone to provide update and discuss anticipated discharge. Pt's spouse is aware and in agreement with plan for discharge. Pt will need ambulance transportation. NADIA is following to assist as needed with discharge planning.
--- NOTE | 2020-05-18 17:41 | NUR ---
DR SUE REQUESTED THE THRESHOLD FROM LAB AND IT IS 26.0/32.6
[2020-05-18 19:47] VITALS: BP 123/61
[2020-05-18 23:40] VITALS: BP 135/57
[2020-05-19 03:28] VITALS: BP 131/62
[2020-05-19 07:26] VITALS: BP 141/60
[2020-05-19 10:55] VITALS: BP 136/58
[2020-05-19] MEDS ORDERED: PREDNISONE 20 M20 M1 PER TUBE (11:26)
[2020-05-19] MEDS ORDERED: PERIDEX 0.12%473 M1 MUCOUS MEM (11:26)
[2020-05-19] MEDS ORDERED: HUMALOG100 UNIT/1 SUBQ (11:26)
[2020-05-19] MEDS ORDERED: AUGMENTIN400 MG/53 PER TUBE (11:26)
[2020-05-19] MEDS ORDERED: LANTUS SUBQ (11:26)
--- NOTE | 2020-05-19 12:10 | NUR ---
ASSUMED CARE APPROX 0700. PT AWAKE AND NONRESPONSIVE. ASSESSMENTS CHARTED AND VSS. PT AFEBRILE. ON 15L VIA TRACH. SR ON TELE MONITOR. PT IN NO APPARENT PAIN. PT TO BE DISCHARGED TODAY BACK TO FACILITY. PT SLOWLY PROGRESSING TOWARDS PLAN OF CARE GOALS.
--- NOTE | 2020-05-19 13:08 | NUR ---
PT DISCHARGING TODAY TO [facility] FAXED DC ORDERS/SUMMARY TO FACILITY RECEIVED CONFIRMATION AND LEFT MSG WITH EVER IN ADM.
--- NOTE | 2020-05-19 13:26 | NUR ---
DISCHARGE NOTE: NADIA reviewed chart and spoke with nursing and attending physician. Pt is in Enhanced Isolation due to COVID-19. Pt is afebrile and on trach shield. Pt is medically stable to discharge to [facility] today. case planner faxed finalized discharge orders/summary to facility. NADIA arranged ambulance for 1500 via [facility]. Confirmed with [facility] that pt is COVID positive. NADIA left voice message for pt's with transportation time. Chart copy requested. Nursing provided with number for report. NADIA notified [facility] liaison of transportation time. No additional SW needs identified at this time, but is available to assist should needs arise.
[2020-05-19 15:24] VITALS: BP 122/59
== END 2020-05-19 15:37 | DRG 871 ==
LOC: ER 09:43 → EROBS 11:56 → 3W 11:56
PROVIDERS: Emergency Medicine; Internal Medicine; Specialist; ADMIT Hospitalist; ATTEND Hospitalist
DX: A41.89 Other specified sepsis (principal); U07.1 COVID-19; J96.21 Acute and chronic respiratory failure with hypoxia; J15.9 Unspecified bacterial pneumonia; J69.0 Pneumonitis due to inhalation of food and vomit; G93.49 Other encephalopathy; N39.0 Urinary tract infection, site not specified; G40.909 Epilepsy, unspecified, not intractable, without status epilepticus; G40.409 Other generalized epilepsy and epileptic syndromes, not intractable, without status epilepticus; E03.9 Hypothyroidism, unspecified; E87.6 Hypokalemia; E11.9 Type 2 diabetes mellitus without complications; Z66 Do not resuscitate; Z51.5 Encounter for palliative care; Z79.899 Other long term (current) drug therapy; Z88.2 Allergy status to sulfonamides; Z88.8 Allergy status to other drugs, medicaments and biological substances; Z93.0 Tracheostomy status; Z79.4 Long term (current) use of insulin; Z98.891 History of uterine scar from previous surgery; Z85.3 Personal history of malignant neoplasm of breast; Z87.820 Personal history of traumatic brain injury; Z85.850 Personal history of malignant neoplasm of thyroid; Z91.09 Other allergy status, other than to drugs and biological substances
CPT/HCPCS: 10879

== ENCOUNTER 2020-05-31 10:59 | Emergency (ER) | payer OTHER ==
[~2020-05-31] VITALS: Ht 160 cm; Wt 81.7 kg
[~2020-05-31 10:59] MED LIST changes: +AUGMENTIN400 MG/53 PER TUBE; +LANTUS SUBQ; +LEVAMIR SUBQ; +PEG3350510 GM PER TUBE; +PERIDEX 0.12%473 M1 MUCOUS MEM; +PREDNISONE 20 M20 M1 PER TUBE; +TRANSDERM-SCOP1 EACH TOP; +VITAMIN C500 MG/15 PO
[2020-05-31 12:48] VITALS: BP 129/64
== END 2020-05-31 12:48 | disposition home or self-care (01) ==
LOC: ER 10:59
DX: Z43.1 Encounter for attention to gastrostomy (principal); E11.9 Type 2 diabetes mellitus without complications; Z79.4 Long term (current) use of insulin; Z79.899 Other long term (current) drug therapy; Z88.2 Allergy status to sulfonamides; Z91.048 Other nonmedicinal substance allergy status; Z88.8 Allergy status to other drugs, medicaments and biological substances

== ENCOUNTER 2020-06-01 00:48 | Emergency (ER) | payer OTHER ==
[~2020-06-01] VITALS: Ht 162.6 cm; Wt 77.1 kg
[2020-06-01 03:55] VITALS: BP 131/81
== END 2020-06-01 03:56 | disposition home or self-care (01) ==
LOC: ER 00:48
DX: K94.23 Gastrostomy malfunction (principal); E11.9 Type 2 diabetes mellitus without complications; Z98.890 Other specified postprocedural states; Z85.3 Personal history of malignant neoplasm of breast; Z85.850 Personal history of malignant neoplasm of thyroid; Z79.2 Long term (current) use of antibiotics; Z79.899 Other long term (current) drug therapy; Z79.4 Long term (current) use of insulin; Z91.048 Other nonmedicinal substance allergy status; Z88.8 Allergy status to other drugs, medicaments and biological substances; Z88.2 Allergy status to sulfonamides

== ENCOUNTER 2020-07-11 06:49 | Inpatient (IN) | payer OTHER ==
[~2020-07-11] VITALS: Ht 157.5 cm; Wt 82.2 kg
[2020-07-11] VITALS (33 sets, daily range): BP systolic 73–126; BP diastolic 44–73
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
[2020-07-11 07:52] LABS: ABSOLUTE NEUTROPHILS 14.1 thou/uL (1.4-8.2); BASOPHILS 0.3 % (0.0-2.0); EOSINOPHILS 0.2 % (0.0-3.0); HEMATOCRIT 33.9 % (37.0-47.0); HEMOGLOBIN 10.9 gm/dL (12.0-15.0); LYMPHOCYTES 2.7 % (24.0-44.0); MCH 28.5 pg (26.0-34.0); MCHC 32.2 g/dL (28.0-37.0); MCV 88.5 fL (80.0-100.0); MONOCYTES 0.5 % (1.0-8.0); PLATELET COUNT 368 thou/uL (150-400); POLYS 96.3 % (36.0-66.0); RBC 3.84 mil/uL (4.20-5.00); RDW 17.4 % (10.5-14.5); WBC 14.6 thou/uL (4.0-11.0)
[2020-07-11 07:55] LABS: CALCIUM 8.2 mg/dL (8.5-10.1); CREATININE 1.5 mg/dL (0.6-1.0); POTASSIUM 4.2 mmol/L (3.5-5.1)
[2020-07-11 08:02] LABS: ALBUMIN 2.5 g/dL (3.4-5.0); DIRECT BILIRUBIN 0.7 mg/dL (<0.1-0.2); TOTAL BILIRUBIN 1.2 mg/dL (0.2-1.0); TOTAL PROTEIN 6.9 g/dL (6.4-8.2)
[2020-07-11 08:10] LABS: URINE BILIRUBIN NEGATIVE (Negative); URINE BLOOD 3+ (Negative); URINE CLARITY CLOUDY; URINE COLOR YELLOW; URINE GLUCOSE-RANDOM* TRACE (Negative); URINE KETONES NEGATIVE (Negative); URINE NITRITE-REFLEX NEGATIVE (Negative); URINE PROTEIN (DIPSTICK) 2+ (Negative); URINE SPECIFIC GRAVITY 1.015 (1.005-1.035); URINE UROBILINOGEN 0.2 E.U./dl (0.2-1.0)
[2020-07-11 08:11] LABS: URINE LEUKOCYTES-REFLEX 2+ (Negative)
[2020-07-11 08:37] LABS: SQUAMOUS 0-3 Few /LPF (0-3)
[2020-07-11 08:38] LABS: BACTERIA-REFLEX >30 Many /HPF (None Seen); CASTS None Seen /LPF (None Seen); CRYSTALS None Seen /LPF (None Seen); URINE WBC-REFLEX >25 Many /HPF (0-5)
--- NOTE | 2020-07-11 10:44 | NUR ---
R IJ Triple Lumen cleared for use after XR review by [employer] [facility]
[2020-07-11 11:51] LABS: BE(vivo) -7.9 mmol/L (-2 to +3); HCO3 16.4 mmol/L (22.0-26.0); PCO2 30.2 mmHg (35.0-45.0); PO2 56.2 mmHg (80.0-100.0); pH 7.354 (7.360-7.450); sO2 88.5 % (92.0-98.0)
--- NOTE | 2020-07-11 12:57 | NUR ---
ATTMEPTED TO CALL REPORT, WAS ADVISED OZIEL WILL CALL ME BACK
--- NOTE | 2020-07-11 17:09 | NUR ---
PT ADMITTED TO ICU FROM ED. ARRIVED ON LEVOPHED GTT. STILL REMAINS ON FOR PRESSOR SUPPORT. IV FLUIDS INITIATED. IV ABX GIVEN. PT HAS TEMP SENSING NAVA IN PLACE. NON-VERBAL. REMAINS DROWSY AND MINIMALLY RESPONSIVE. WILL BLINK EYES AT TIMES. PUPILS REACTIVE BUT VERY SLUGGISH. CONSULTS FROM ID AND NEUROLOGY. TRACH SHIELD IN PLACE. ADMISSION ASSESMENTS COMPLETE. HISTORY LIMITED DUE TO PATIENT MENTAL STATUS. WILL CONTIUE TO MONITOR.
--- NOTE | 2020-07-11 22:23 | NUR ---
ASSUMED CARE OF PATIENT AT 1900. NEGATIVE COVID RESULTS NOTED. CHARGE NURSE, COMMUNICATIONS ASSOCIATE, ELECTRICIAN SOUND AND DR Blossom SUE NOTIFIED. ORDERS TO DC ENHANCED PRECAUTIONS OBTAINED.
[2020-07-12] VITALS (105 sets, daily range): BP systolic 74–120; BP diastolic 41–72
--- NOTE | 2020-07-12 03:34 | NUR ---
PATIENT CARE GIVEN CHARTED. MOVES LOWER EXTREMETIES, THOUGH NOT SURE IF PURPOSEFUL. REMAINS ON TRACH SHIELD. LEVOPHED INFUSING TO MAINTAIN BLOOD PRESSURE. EXCELLENT URINE OUTPUT. WORKING TOWARDS POC GOALS.
[2020-07-12 05:24] LABS: HEMOGLOBIN 9.7 gm/dL (12.0-15.0)
[2020-07-12 05:27] LABS: HEMATOCRIT 30.7 % (37.0-47.0); MCH 27.8 pg (26.0-34.0); MCHC 31.5 g/dL (28.0-37.0); MCV 88.1 fL (80.0-100.0); RBC 3.49 mil/uL (4.20-5.00)
[2020-07-12 05:59] LABS: WBC 43.6 thou/uL (4.0-11.0)
[2020-07-12 06:01] LABS: CALCIUM 8.1 mg/dL (8.5-10.1); CREATININE 0.8 mg/dL (0.6-1.0)
[2020-07-12 06:08] LABS: POTASSIUM 2.6 mmol/L (3.5-5.1)
--- NOTE | 2020-07-12 19:13 | NUR ---
PATIENT STABLE THROUGH OUT THE DAY. REMAINS ON LEVOPHED GTT FPR PRESSURE SUPPORT BUT MAKING PROGRESS IN TITRATING DOWN. ACCUCHECK Q6HR. NO INSULIN REQUIRED. VSS. WILL BLINK EYES TO STIMULI. SPOKE WITH , THIS IS PATIENTS BASELINE. PT PROGRESSING.
[2020-07-12 23:44] LABS: APTT 32.6 Seconds (24.5-32.8); PROTIME 10.7 Seconds (9.3-11.4)
[2020-07-13] VITALS (26 sets, daily range): BP systolic 87–123; BP diastolic 42–67
--- NOTE | 2020-07-13 02:26 | NUR ---
ASSUMED CARE OF PATIENT AT 1900. VSS, LEVOPHED TITRATED ABLE. TOLERATING WELL. NO S/S OF DISTRESS. PROGRESSING TOWARDS POC GOALS.
[2020-07-13 05:26] LABS: HEMOGLOBIN 9.6 gm/dL (12.0-15.0); MCH 27.8 pg (26.0-34.0); PLATELET COUNT 190 thou/uL (150-400); RBC 3.45 mil/uL (4.20-5.00); RDW 18.3 % (10.5-14.5); WBC 29.6 thou/uL (4.0-11.0)
[2020-07-13 05:41] LABS: ALBUMIN 1.9 g/dL (3.4-5.0); CALCIUM 8.2 mg/dL (8.5-10.1); CREATININE 0.7 mg/dL (0.6-1.0); MAGNESIUM 1.6 mg/dL (1.8-2.4); TOTAL BILIRUBIN 0.5 mg/dL (0.2-1.0); TOTAL PROTEIN 5.7 g/dL (6.4-8.2)
[2020-07-13 05:44] LABS: POTASSIUM 2.9 mmol/L (3.5-5.1)
--- NOTE | 2020-07-13 08:30 | NUR ---
per hospitalist, she will need to transfer rt obstruction kidney. cm faxed referrals to [facility], "they will check [facility] who have urology" [facility] transfer [facility], [facility] " will keep referral but have no icu beds"/ [facility] transfer nurse. faxed to [facility], " full but will keep referral and if anything changes will call for MD number and let you know"/[facility]. will cont following as needed for dc needs.
--- NOTE | 2020-07-13 10:05 | NUR ---
When ready to resume tube feeding, start glucerna 1.2 with goal of 60ml/hr. Defer any fluid needs to physician-pt currently on ivf.
[2020-07-13 10:30] LABS: ABSOLUTE NEUTROPHILS 28.4 thou/uL (1.4-8.2); ANISOCYTOSIS 1+; METAMYELOCYTES 4 %
--- NOTE | 2020-07-13 13:30 | NUR ---
[facility] transfer [facility] call, stated no beds at [facility] and no other [facility] beds either. they will call back later today if any beds open up. cm passed on information to cm and hospitalist.
--- NOTE | 2020-07-13 17:29 | NUR ---
ASSUMED CARE AROUND 1245, NONE VERBAL, VSS, SR ON THE MONITOR AND ASSESSMENT DOCUMENTED. PATIENT NOTIFIED THAT THE PATIENT TRANFERED TO CCU, UPDATES WITH THE BED AVAILABILITY IN OTHER FACILITIES,AND CONSENT FOR NEPHROSTOMY OBTAINED. PRN TRACH SUCTIONED AND WILL CONTINUE WITH POC.
[2020-07-14 04:16] VITALS: BP 109/64
[2020-07-14 07:50] VITALS: BP 152/58
--- NOTE | 2020-07-14 07:51 | NUR ---
NPO.SUCTIONED NEEDED.TURN Q2.MONITOR SHOWS SINUS RHYTHM.NAVA TO DD. NO SEIZURES NOTED.POC CONTINUED.
--- NOTE | 2020-07-14 07:52 | NUR ---
0748 - PT ACCOMPANIED BY IR RNs FOR TRANSPORT, BS AT 78, AM DOSE OF LEVETIRCETAM WILL BE GIVEN POST IR PROCEDURE.
--- NOTE | 2020-07-14 09:14 | NUR ---
MAGALIE SPOKE WITH HAZEL AT [facility]. UPDATES TO BE SENT BY CM TEAM. [facility] WOULD LIKE TO KNOW IF SHE IS TRANSFERRED TO ANOTHER HOSPITAL SO THEY CAN FOLLOW HER WHERE [facility] SHE IS. EVER IS A LTC RESIDENT, ASSIST WITH ALL ADL'S. WILL CONT FOLLOWING NEEDED FOR DC NEEDS.
[2020-07-14 10:06] VITALS: BP 101/52
--- NOTE | 2020-07-14 14:19 | NUR ---
[facility] tx RN checking on beds at [facility] and will call the attending. Inpt tx requested called to [facility] and face sheet faxed. Imaging uploaded to the cloud for both [facility] and [facility]. Will follow.
--- NOTE | 2020-07-14 16:24 | NUR ---
FAXED CLINICAL UPDATE TO [facility] SPOKE WITH HAZEL IN ADM SHE RECEIVED UPDATE. DP TO FOLLOW.
[2020-07-14 16:45] VITALS: BP 139/69
--- NOTE | 2020-07-14 20:18 | NUR ---
PT WENT TO IR TODAY RECEIVED A L NEPHROSTOMY TUBE, PT CAME BACK, THICK BLOOD TINGED SPUTUM COLLECTED AT THE TRACH SITE THROUGHOUT THE DAY WELL IN THE TRACH TUBING. RN CONSUTLED RT SWITCHED OUT THE TUBING MECHANISM WELL THE TRACH TIE. YANEKEAUR SUCTION WAS USED, ORAL CARE WAS GIVEN FOR APPROXIMATELY 20 MINUTES. PT WAS TURNED Q2H FROM SEMI TO THE R SIDE TO AVOID ADDING PRESSURE TO THE L NEPHROSTOMY SITE. NEPHRO TUBE WAS KINKED INTIALLY, IR WAS CONSULTED BY THIS RN AND IR CAME BACK AND NEPHRO TUBE WAS UNKINKED. URINE OUTPUT TOTALLY FROM NAVA AND NEPHRO TUBE WAS AROUND 1600cc CLOUDY/SEDIMENTS/AND PINK URINE WAS NOTED. PT NONVERBAL, RN ATTEMPTED TO MAKE PT CLEAN/COMFORTABLE POSSIBLE THIS SHIFT. REDNESS WAS FOUND AT THE GROIN, RN CLEANED THE SITE UP AND LEFT IT HOLLEY POSSIBLE TO FACILITATE HEALING. RN PASSED ON TO NOC SHIFT. SITE OF PEG TUBE WAS RED WELL, RN CLEANED THE SITE UP AND PLACED NEW GUAZE. CENTER POINT TRANSFER STAFF CALLED RN TOWARDS BEGINNING OF SHIFT, GAVE ROOM NUMBER/UNIT/PHONE NUMBER AND RECEIVING RN. CALL WAS NOT ANSWERED, TURNED OUT PT HAD WRONG UNIT ASSIGNMENT. RN FOLLOWED UP AND DISCOVERED THIS. [place] TRANSFER NURSE TO CONTACT NOC NURSE TO RETREIVE REPORT. AND CONTINUE THE TRANSFER. RN SIGNIGN OFF
[2020-07-14 21:33] VITALS: BP 136/62
--- NOTE | 2020-07-14 23:31 | NUR ---
assumed pt care at the change of shift, pt is nonverbal, sr/st on the monitor, bs stable, vital signs stable, meds given via peg tube as ordered, report given to nicolás at [facility], nephro site cdi, o2 stable, remains on trach, pt left the floor at 2340, stable no distress noted
== END 2020-07-14 23:40 | disposition short-term general hospital (02) | DRG 853 ==
LOC: ER 06:49 → EROBS 10:45 → ICU 10:45 → 2N 07-13 13:01
PROVIDERS: Emergency Medicine; Hospitalist; Specialist; ADMIT Internal Medicine; ATTEND Internal Medicine
PROC: 0T743DZ Dilation of Left Kidney Pelvis with Intraluminal Device, Percutaneous Approach (ICD-10-PCS; principal; 2020-07-14)
PROC: 0T143JD Bypass Left Kidney Pelvis to Cutaneous with Synthetic Substitute, Percutaneous Approach (ICD-10-PCS; principal; 2020-07-14)
PROC: BT1F1ZZ Fluoroscopy of Left Kidney, Ureter and Bladder using Low Osmolar Contrast (ICD-10-PCS; principal; 2020-07-14)
DX: A41.51 Sepsis due to Escherichia coli [E. coli] (principal); R65.21 Severe sepsis with septic shock; N17.9 Acute kidney failure, unspecified; N13.6 Pyonephrosis; K56.7 Ileus, unspecified; A41.59 Other Gram-negative sepsis; D64.9 Anemia, unspecified; E03.9 Hypothyroidism, unspecified; K94.29 Other complications of gastrostomy; B96.20 Unspecified Escherichia coli [E. coli] as the cause of diseases classified elsewhere; E11.9 Type 2 diabetes mellitus without complications; B96.89 Other specified bacterial agents as the cause of diseases classified elsewhere; Y83.8 Other surgical procedures as the cause of abnormal reaction of the patient, or of later complication, without mention of misadventure at the time of the procedure; G40.901 Epilepsy, unspecified, not intractable, with status epilepticus; Z85.3 Personal history of malignant neoplasm of breast; Z92.21 Personal history of antineoplastic chemotherapy; Z85.850 Personal history of malignant neoplasm of thyroid; Z79.2 Long term (current) use of antibiotics; Z79.4 Long term (current) use of insulin; Z88.8 Allergy status to other drugs, medicaments and biological substances; Z88.1 Allergy status to other antibiotic agents; Z88.2 Allergy status to sulfonamides; Y92.89 Other specified places as the place of occurrence of the external cause; Z20.828 Contact with and (suspected) exposure to other viral communicable diseases
CPT/HCPCS: 10078; 10081

== ENCOUNTER 2020-08-05 01:08 | Emergency (ER) | payer OTHER ==
[~2020-08-05] VITALS: Ht 165.1 cm; Wt 78.6 kg
[2020-08-05 04:22] VITALS: BP 154/74
== END 2020-08-05 04:25 | disposition home or self-care (01) ==
LOC: ER 01:08
DX: K94.23 Gastrostomy malfunction (principal); E11.9 Type 2 diabetes mellitus without complications; Z79.2 Long term (current) use of antibiotics; Z79.4 Long term (current) use of insulin; Z79.899 Other long term (current) drug therapy; Z88.2 Allergy status to sulfonamides; Z91.048 Other nonmedicinal substance allergy status; Z88.8 Allergy status to other drugs, medicaments and biological substances

== ENCOUNTER 2020-08-06 18:27 | Emergency (ER) | payer OTHER ==
[~2020-08-06] VITALS: Ht 165.1 cm; Wt 82.3 kg
[2020-08-06 21:47] VITALS: BP 158/84
== END 2020-08-06 21:49 | disposition home or self-care (01) ==
LOC: ER 18:27
DX: K94.23 Gastrostomy malfunction (principal); E11.9 Type 2 diabetes mellitus without complications; Z79.4 Long term (current) use of insulin; Z79.2 Long term (current) use of antibiotics; Z79.899 Other long term (current) drug therapy; Z88.2 Allergy status to sulfonamides; Z88.8 Allergy status to other drugs, medicaments and biological substances; Z91.048 Other nonmedicinal substance allergy status

== ENCOUNTER 2020-08-08 19:33 | Emergency (ER) | payer OTHER ==
[~2020-08-08] VITALS: Ht 165.1 cm; Wt 77.1 kg
[2020-08-08] MEDS ORDERED: ACETAMINOPHEN650 MG RECTAL (20:04)
[2020-08-08] MEDS ORDERED: IPRAT-ALBUT 0.5-3 ML INH (20:05)
[2020-08-08] MEDS ORDERED: POTASSIUM20 PER TUBE (20:07)
[2020-08-08] MEDS ORDERED: PREDNISONE 5 MG5 M1 PER TUBE (20:09)
[2020-08-08 22:00] VITALS: BP 130/72
[2020-08-09] MEDS ORDERED: KEFLEX500 M1 PO (14:12)
== END 2020-08-08 23:09 ==
LOC: ER 19:33
DX: Z43.1 Encounter for attention to gastrostomy (principal); E11.9 Type 2 diabetes mellitus without complications; Z88.2 Allergy status to sulfonamides; Z88.8 Allergy status to other drugs, medicaments and biological substances; Z91.048 Other nonmedicinal substance allergy status

== ENCOUNTER 2020-08-09 12:27 | Emergency (ER) | payer OTHER ==
[~2020-08-09] VITALS: Ht 170.2 cm; Wt 77.1 kg
[~2020-08-09 12:27] MED LIST changes: +ACETAMINOPHEN650 MG RECTAL; +PREDNISONE 5 MG5 M1 PER TUBE
[2020-08-09 13:52] LABS: URINE BILIRUBIN NEGATIVE (Negative); URINE BLOOD TRACE (Negative); URINE CLARITY CLOUDY; URINE COLOR YELLOW; URINE GLUCOSE-RANDOM* NEGATIVE (Negative); URINE KETONES NEGATIVE (Negative); URINE NITRITE-REFLEX NEGATIVE (Negative); URINE PROTEIN (DIPSTICK) 1+ (Negative)
[2020-08-09 13:54] LABS: URINE LEUKOCYTES-REFLEX 3+ (Negative)
[2020-08-09 14:10] VITALS: BP 149/74
[2020-08-09] MEDS ORDERED: KEFLEX500 M1 PO (14:12)
[2020-08-09 14:14] LABS: SQUAMOUS 0-3 Few /LPF (0-3)
[2020-08-09 14:15] LABS: BACTERIA-REFLEX >30 Many /HPF (None Seen); CASTS None Seen /LPF (None Seen); CRYSTALS None Seen /LPF (None Seen); URINE RBC 3-10 Few /HPF (0-2); URINE WBC-REFLEX >25 Many /HPF (0-5)
== END 2020-08-09 14:10 ==
LOC: ER 12:27
PROVIDERS: Nurse Practitioner
DX: Z43.1 Encounter for attention to gastrostomy (principal); N39.0 Urinary tract infection, site not specified; E11.9 Type 2 diabetes mellitus without complications; Z79.4 Long term (current) use of insulin; Z79.899 Other long term (current) drug therapy; Z88.2 Allergy status to sulfonamides; Z88.8 Allergy status to other drugs, medicaments and biological substances; Z91.048 Other nonmedicinal substance allergy status

== ENCOUNTER 2020-08-15 02:32 | Emergency (ER) | payer OTHER ==
[~2020-08-15] VITALS: Ht 167.6 cm; Wt 76.1 kg
[~2020-08-15 02:32] MED LIST changes: +KEFLEX500 M1 PO
[2020-08-15 07:27] VITALS: BP 150/83
== END 2020-08-15 07:27 | disposition home or self-care (01) ==
LOC: ER 02:32
DX: Z46.59 Encounter for fitting and adjustment of other gastrointestinal appliance and device (principal); E11.9 Type 2 diabetes mellitus without complications; Z98.890 Other specified postprocedural states; Z85.3 Personal history of malignant neoplasm of breast; Z85.850 Personal history of malignant neoplasm of thyroid; Z79.4 Long term (current) use of insulin; Z79.2 Long term (current) use of antibiotics; Z79.899 Other long term (current) drug therapy; Z91.048 Other nonmedicinal substance allergy status; Z88.8 Allergy status to other drugs, medicaments and biological substances; Z88.2 Allergy status to sulfonamides; Z93.1 Gastrostomy status

== ENCOUNTER 2020-12-14 00:49 | Emergency (ER) | payer OTHER ==
[~2020-12-14] VITALS: Ht 165.1 cm; Wt 77.1 kg
[2020-12-14] MEDS ORDERED: VITAMIN C500 M1 PO (03:14)
[2020-12-14 04:06] VITALS: BP 168/71
== END 2020-12-14 04:07 | disposition home or self-care (01) ==
LOC: ER 00:49
DX: K94.23 Gastrostomy malfunction (principal); E11.9 Type 2 diabetes mellitus without complications; Z88.2 Allergy status to sulfonamides; Z79.899 Other long term (current) drug therapy; Z98.890 Other specified postprocedural states; Z85.3 Personal history of malignant neoplasm of breast

== ENCOUNTER 2021-02-10 06:07 | Emergency (ER) | payer OTHER ==
[~2021-02-10] VITALS: Ht 165.1 cm; Wt 90.7 kg
[~2021-02-10 06:07] MED LIST changes: -PREDNISONE 5 MG5 M1 PER TUBE; +PREDNISONE 5 MG5 MG; +VITAMIN C500 M1 PO
[2021-02-10] MEDS ORDERED: VITAMIN C500 M2 PO (07:13)
[2021-02-10] MEDS ORDERED: GUAIFENESIN (07:16)
[2021-02-10] MEDS ORDERED: LEVEMIR100 UNIT/1 SUBQ (07:24)
[2021-02-10 09:30] VITALS: BP 130/81
== END 2021-02-10 12:17 | disposition home or self-care (01) ==
LOC: ER 06:07
DX: K94.23 Gastrostomy malfunction (principal); E11.9 Type 2 diabetes mellitus without complications; Z88.2 Allergy status to sulfonamides; Z88.8 Allergy status to other drugs, medicaments and biological substances; Z79.899 Other long term (current) drug therapy; Z98.890 Other specified postprocedural states; Z85.850 Personal history of malignant neoplasm of thyroid; Z85.3 Personal history of malignant neoplasm of breast

== ENCOUNTER 2021-03-03 07:33 | Emergency (ER) | payer OTHER ==
[~2021-03-03] VITALS: Ht 160 cm; Wt 68.0 kg
[~2021-03-03 07:33] MED LIST changes: +GUAIFENESIN; +LEVEMIR100 UNIT/1 SUBQ; +VITAMIN C500 M2 PO
[2021-03-03 08:10] LABS: URINE BILIRUBIN NEGATIVE (Negative); URINE BLOOD TRACE (Negative); URINE CLARITY CLEAR; URINE COLOR YELLOW; URINE GLUCOSE-RANDOM* NEGATIVE (Negative); URINE KETONES NEGATIVE (Negative); URINE PROTEIN (DIPSTICK) NEGATIVE (Negative); URINE SPECIFIC GRAVITY 1.015 (1.005-1.035); URINE UROBILINOGEN 0.2 E.U./dl (0.2-1.0)
[2021-03-03 08:14] LABS: URINE LEUKOCYTES-REFLEX 2+ (Negative); URINE NITRITE-REFLEX POSITIVE (Negative)
[2021-03-03] MEDS ORDERED: KEFLEX250 MG/5 M PO (08:28)
[2021-03-03 08:37] LABS: CASTS None Seen /LPF (None Seen); SQUAMOUS 0-3 Few /LPF (0-3)
[2021-03-03 08:38] LABS: BACTERIA-REFLEX >30 Many /HPF (None Seen); CRYSTALS None Seen /LPF (None Seen); URINE RBC 1-2 Rare /HPF (NONE SEEN); URINE WBC-REFLEX 0-5 Rare /HPF (0-5)
[2021-03-03 10:00] VITALS: BP 129/78
== END 2021-03-03 10:10 ==
LOC: ER 07:33
PROVIDERS: Emergency Medicine
DX: K94.23 Gastrostomy malfunction (principal); N39.0 Urinary tract infection, site not specified; E11.9 Type 2 diabetes mellitus without complications; Z85.850 Personal history of malignant neoplasm of thyroid; Z98.890 Other specified postprocedural states; Z85.3 Personal history of malignant neoplasm of breast; Z86.16 Personal history of COVID-19; Z79.4 Long term (current) use of insulin; Z79.2 Long term (current) use of antibiotics; Z79.899 Other long term (current) drug therapy; Z91.048 Other nonmedicinal substance allergy status; Z88.2 Allergy status to sulfonamides; Z88.8 Allergy status to other drugs, medicaments and biological substances

== ENCOUNTER 2021-04-22 11:13 | Emergency (ER) | payer OTHER ==
[~2021-04-22] VITALS: Ht 165.1 cm; Wt 81.7 kg
[~2021-04-22 11:13] MED LIST changes: +KEFLEX250 MG/5 M PO
[2021-04-22 12:37] VITALS: BP 124/66
== END 2021-04-22 12:37 ==
LOC: ER 11:13
DX: K94.23 Gastrostomy malfunction (principal); E11.9 Type 2 diabetes mellitus without complications; Z79.4 Long term (current) use of insulin; Z79.899 Other long term (current) drug therapy; Z91.048 Other nonmedicinal substance allergy status; Z88.2 Allergy status to sulfonamides; Z88.9 Allergy status to unspecified drugs, medicaments and biological substances

== ENCOUNTER 2021-05-18 05:01 | Emergency (ER) | payer OTHER ==
[~2021-05-18] VITALS: Ht 167.6 cm; Wt 90.7 kg
--- NOTE | ~2021-05-18 | EMS ---
[address] [address] EMS Patient Care Report Name: EVER OCUGHLIN Room #: REG ADRYAN Meza#: [id number] Admission: 05/18/21 Attend Phys: Discharge: Date of : 54 Report #: [id number] THIS REPORT FOR: //name// Report Transmitted: 05/18/2021 05:51 EMS Care Summary [facility] MED-ACT Incident [id number] @ 05/18/2021 04:29 Incident Location [address] [place] [address] Patient EVER COUGHLIN Female, 70 Years 1950 Patient Address [address] [place] [address] Patient History Epilepsy,Hypertension (HTN),Gastro-Esophageal Reflux Disease (GERD),Hypothyroidism,Dysphagia,Type 1 Diabetes,Chronic Respiratory Failure, Patient Allergies Sulfa,Adhesive Tape, Patient Medications Keppra, Acetaminophen, Famotidine, Potassium, Levothyroxine, Amlodipine, Chief Complaint Pt pulled feeding tube Disposition Transported No Lights/[place] Dispatch Reason Sick Person Transported To [facility] Narrative Dispatched to a Nursing facility for a sick person. [address] [address] EMS Patient Care Report Name: EVER COUGHLIN Room #: REG ADRYAN Meza#: [id number] Admission: 05/18/21 Attend Phys: Discharge: Date of : 54 Report #: [id number] Arrive on scene. Staff escort us to the Pt. Pt is laying supine on their bed. Pt is responsive to verbal which is reported as their baseline, breathing spontaneously, and supporting her own airway. Staff report that the Pt pulled their feeding tube about 30 min prior to calling and needed to be replaced. Pt didn't appear to be in any current distress or pain. The Pt did gently pull at the straps of the cot and the NRB when placed. Pt did appear to understand when talked to but could not obey commands. Pt was moved to the cot w/out difficulty and transferred to the medic unit. En route the Pt's condition and vitals remained stable w/ no new complaints. Made Pt contact. Obtained baseline vitals and hx. Transferred Pt to cot then medic unit. Gave radio report to receiving facility. Upon arrival at [place], transferred Pt and Pt care to FOIL CUTTER. [facility] and returned to service. EOR. Initial Vitals @04:57P: 97,BP: 121/79, @04:57P: 96,SpO2: 100, @04:45P: 98,R: 18,BP: 126/80,Pain: 0/10,GCS: 13,Temp: 97.8F,SpO2: 100,Revised Trauma: 12, Impression Abdominal Pain Procedures @04:40Oxygen FlowRate: 8 Device: Non Re-breather Mask (NRB) Response: UnchangedSucceeded Timeline 04:28,Call Received 04:28,Psap Call 04:29,Dispatched 04:31,En Route 04:35,On Scene 04:38,At Patient 04:40,Oxygen FlowRate: 8 Device: Non Re-breather Mask (NRB) Response: UnchangedSucceeded, 04:45,BP: 126/80 M,PULSE: 98,RR: 18 R,SPO2: 100 Ox,ETCO2: ,BG: ,PAIN: 0,GCS: 13, 04:48,Depart Scene 04:57,BP: / M,PULSE: 96,RR: R,SPO2: 100 Ox,ETCO2: ,BG: ,PAIN: ,GCS: , 04:57,At Destination 04:57,BP: 121/79 M,PULSE: 97,RR: R,SPO2: Ox,ETCO2: ,BG: ,PAIN: ,GCS: , [facility] [address] [place] [address] EMS Patient Care Report Name: EVER COUGHLIN Room #: REG [facility].#: [id number] Admission: 05/18/21 Attend Phys: Discharge: Date of : 54 Report #: [id number] 05:20,Call Closed Disclaimer v1.1 Copyright 2020 [employer] This EMS Care Summary contains data elements from the applicable legal record (which may be displayed differently). It is designed to provide pertinent information for the following purposes: continuity of care, clinical quality, and state data reporting. The complete legal record is available to ED staff and administrators of the receiving hospital in [employer]'s Patient Tracker. All data is provided "as is."
[2021-05-18 09:20] VITALS: BP 129/67
== END 2021-05-18 09:25 ==
LOC: ER 05:01
DX: K94.23 Gastrostomy malfunction (principal); E11.9 Type 2 diabetes mellitus without complications; Z46.59 Encounter for fitting and adjustment of other gastrointestinal appliance and device; Z98.890 Other specified postprocedural states; Z85.3 Personal history of malignant neoplasm of breast; Z86.16 Personal history of COVID-19; Z85.850 Personal history of malignant neoplasm of thyroid; Z79.4 Long term (current) use of insulin; Z79.899 Other long term (current) drug therapy; Z79.891 Long term (current) use of opiate analgesic; Z79.1 Long term (current) use of non-steroidal anti-inflammatories (NSAID); Z88.8 Allergy status to other drugs, medicaments and biological substances; Z88.2 Allergy status to sulfonamides; Y83.8 Other surgical procedures as the cause of abnormal reaction of the patient, or of later complication, without mention of misadventure at the time of the procedure; Y92.89 Other specified places as the place of occurrence of the external cause

== ENCOUNTER 2021-06-12 21:19 | Emergency (ER) | payer OTHER ==
[~2021-06-12] VITALS: Wt 72.6 kg
--- NOTE | ~2021-06-12 | EMS ---
[facility] [address] [place] [address] EMS Patient Care Report Name: EVER COUGHLIN Room #: REG ADRYAN Meza#: [id number] Admission: 06/12/21 Attend Phys: Discharge: Date of : 54 Report #: [id number] THIS REPORT FOR: //name// Report Transmitted: 06/12/2021 21:00 EMS Care Summary [facility] MED-ACT Incident [id number] @ 06/12/2021 20:37 Incident Location [address] [place] [address] Patient EVER COUGHLIN Female, 71 Years 1950 Patient Address [address] [place] [address] Patient History Epilepsy,Hypertension (HTN),Gastro-Esophageal Reflux Disease (GERD),Hypothyroidism,Dysphagia,Type 1 Diabetes,Chronic Respiratory Failure, Patient Allergies Sulfa,Adhesive Tape, Patient Medications Potassium, Keppra, Levothyroxine, Famotidine, Acetaminophen, Amlodipine, Chief Complaint g-tube dislodged Disposition Transported No Lights/[place] Dispatch Reason Sick Person Transported To [facility] Narrative dispatch: medic 1134 dispatched to a longterm facility for a report of a [facility] [address] [place] [address] EMS Patient Care Report Name: EVER COUGHLIN Room #: REG ADRYAN Meza#: [id number] Admission: 06/12/21 Attend Phys: Discharge: Date of : 54 Report #: [id number] sick [place] [employer]. medic 1134 immediately responded to the scene without delay. chief complaint: upon arrival to the receiving facility ems enters pt room to find a 71 y/o female pt supine in facility bed. pt not alert, with no acknowledgement of her surroundings. facility staff reports this to be pt baseline facility staff reports pt g-tube was fully dislodged. history of present illness: staff reports pt exhibits non-purposeful movements with her upper extremities and g-tube had become dislodged. staff requests pt to be transported to a local er for evaluation. assessment: als assessment performed, findings noted within report. rendered treatment: assessment, vital signs, transport. transport: facility staff requests transport to [facility]. pt transferred to stretcher using a draw sheet. stretcher transferred to ambulance, lifted, and secured. pt continuously monitored through out transport for changes in condition. upon arrival to the receiving facility pt transferred to er bed using a draw sheet. verbal report given to attending staff and transfer of care. Initial Vitals @21:08P: 93,R: 16,BP: 116/65,GCS: 9,SpO2: 97,Revised Trauma: 11, @21:04P: 92,R: 16,BP: 130/60,GCS: 9,Temp: 98.2F,SpO2: 97,Revised Trauma: 11, Impression mule tender failure Procedures @20:53ALS AssessmentResponse: [email or web address] CommentsResponse: Unchanged Timeline TRUCK ASSEMBLER,General Comments,Response: Unchanged 20:35,Call Received 20:35,Psap Call 20:37,Dispatched 20:37,En Route 20:46,On Scene 20:52,At Patient 20:53,ALS Assessment,Response: UnchangedSucceeded, 21:01,Depart Scene 21:04,BP: 130/60 M,PULSE: 92,RR: 16 R,SPO2: 97 Ox,ETCO2: ,BG: ,PAIN: ,GCS: 9, 21:08,BP: 116/65 M,PULSE: 93,RR: 16 R,SPO2: 97 Ox,ETCO2: ,BG: ,PAIN: ,GCS: 9, [facility] [address] [place] [address] EMS Patient Care Report Name: EVER COUGHLNI Room #: REG [facility]#: [id number] Admission: 06/12/21 Attend Phys: Discharge: Date of : 54 Report #: [id number] 21:10,At Destination 21:27,Call Closed Disclaimer v1.1 Copyright 2020 [employer] This EMS Care Summary contains data elements from the applicable legal record (which may be displayed differently). It is designed to provide pertinent information for the following purposes: continuity of care, clinical quality, and state data reporting. The complete legal record is available to ED staff and administrators of the receiving hospital in [employer]'s Patient Tracker. All data is provided "as is."
[2021-06-12 22:43] VITALS: BP 115/69
== END 2021-06-12 22:55 | disposition home or self-care (01) ==
LOC: ER 21:19
DX: K94.23 Gastrostomy malfunction (principal); E11.9 Type 2 diabetes mellitus without complications; Z98.890 Other specified postprocedural states; Z85.3 Personal history of malignant neoplasm of breast; Z85.850 Personal history of malignant neoplasm of thyroid; Z86.16 Personal history of COVID-19; Z79.4 Long term (current) use of insulin; Z79.899 Other long term (current) drug therapy; Z79.891 Long term (current) use of opiate analgesic; Z88.2 Allergy status to sulfonamides; Z88.8 Allergy status to other drugs, medicaments and biological substances; Z91.048 Other nonmedicinal substance allergy status; Y83.8 Other surgical procedures as the cause of abnormal reaction of the patient, or of later complication, without mention of misadventure at the time of the procedure; Y92.89 Other specified places as the place of occurrence of the external cause

== ENCOUNTER 2021-08-24 06:57 | Emergency (ER) | payer OTHER ==
[~2021-08-24] VITALS: Ht 167.6 cm; Wt 72.6 kg
--- NOTE | ~2021-08-24 | EMS ---
[facility] [address] [place] [address] EMS Patient Care Report Name: EVER COUGHLIN Room #: REG ADRYAN Meza#: [id number] Admission: 08/24/21 Attend Phys: Discharge: Date of : 54 Report #: [id number] THIS REPORT FOR: //name// Report Transmitted: 08/24/2021 07:40 EMS Care Summary [facility] MED-ACT Incident [id number] @ 08/24/2021 06:23 Incident Location [address] [place] [address] Patient EVER COUGHLIN Female, 71 Years 1950 Patient Address [address] [place] [address] Patient History Epilepsy,Hypertension (HTN),Gastro-Esophageal Reflux Disease (GERD),Hypothyroidism,Dysphagia,Type 1 Diabetes,Chronic Respiratory Failure, Patient Allergies Sulfa,Adhesive Tape, Patient Medications Levothyroxine, Keppra, Potassium, Amlodipine, Famotidine, Acetaminophen, Chief Complaint leaking g tube Disposition Transported No Lights/[place] Dispatch Reason Sick Person Transported To [facility] Narrative medic 1134 dispatched to a care home facility for a report of a sick [facility] [address] [place] [address] EMS Patient Care Report Name: EVER COUGHLIN Room #: REG ADRYAN Meza#: [id number] Admission: 08/24/21 Attend Phys: Discharge: Date of : 54 Report #: [id number] [employer]. medic 1134 immediately responded to the scene without delay. upon arrival to the scene ems enters the facility to find a 71 y/o female supine in facility bed. pt opens her eyes to verbal stimuli. staff reports pt gastrostomy tube was dislodged. staff reports they noted the tube appeared to be dislodged with a drainage around the area. assessment of the area shows discoloration and a foul odor. staff requests pt to be transported to [facility]. pt transferred to stretcher using a draw sheet. stretcher transferred to ambulance, lifted, and secured. pt continuously monitored through out transport for changes in condition. upon arrival to the receiving facility pt transferred to er bed using a draw sheet. verbal report given to attending staff and transfer of care complete. Initial Vitals @06:46P: 105,R: 16,BP: 118/78,GCS: 11,SpO2: 97,Revised Trauma: 11, @06:53P: 97,R: 16,BP: 129/61,GCS: 11,SpO2: 100,Revised Trauma: 11, @06:35P: 104,R: 16,BP: 134/87,GCS: 11,Temp: 98.9F,SpO2: 97,Revised Trauma: 11, Impression Gastrostomy infection Procedures @PTAALS Assessment Response: UnchangedSucceeded @06:40 Surgical Mask on Patient Response: Unchanged @06:35 Oxygen FlowRate: 4 Device: Trach Mask Response: UnchangedSucceeded Timeline PRODUCT RESPONSIBILITY LIAISON,ALS Assessment,Response: UnchangedSucceeded, 06:20,Call Received 06:20,Psap Call 06:23,Dispatched 06:25,En Route 06:30,On Scene 06:33,At Patient 06:35,Oxygen FlowRate: 4 Device: Trach Mask Response: UnchangedSucceeded, 06:35,BP: 134/87 M,PULSE: 104,RR: 16 R,SPO2: 97 Ox,ETCO2: ,BG: ,PAIN: ,GCS: 11, 06:40,Surgical Mask on Patient,Response: Unchanged 06:46,BP: 118/78 M,PULSE: 105,RR: 16 R,SPO2: 97 Ox,ETCO2: ,BG: ,PAIN: ,GCS: 11, 06:47,Depart Scene 06:53,BP: 129/61 M,PULSE: 97,RR: 16 R,SPO2: 100 Ox,ETCO2: ,BG: ,PAIN: ,GCS: 11, 06:54,At Destination 07:13,Call Closed Disclaimer v1.1 Copyright 2020 [employer] [address] [address] EMS Patient Care Report Name: EVER COUGHLIN Room #: REG ADRYAN Hoyt.#: [id number] Admission: 08/24/21 Attend Phys: Discharge: Date of : 54 Report #: [id number] This EMS Care Summary contains data elements from the applicable legal record (which may be displayed differently). It is designed to provide pertinent information for the following purposes: continuity of care, clinical quality, and state data reporting. The complete legal record is available to ED staff and administrators of the receiving hospital in [facility]'s Patient Tracker. All data is provided "as is."
--- NOTE | ~2021-08-24 | EMS ---
[facility] [address] [place] [address] EMS Patient Care Report Name: EVER COUGHLIN Room #: REG ADRYAN Meza#: [id number] Admission: 08/24/21 Attend Phys: Discharge: Date of : 54 Report #: [id number] THIS REPORT FOR: //name// Report Transmitted: 08/24/2021 06:37 EMS Care Summary [facility] MED-ACT Incident [id number] @ 08/24/2021 06:23 Incident Location [address] [place] [address] Patient EVER COUGHLIN Female, 71 Years 1950 Patient Address [address] [place] [address] Patient History Epilepsy,Hypertension (HTN),Gastro-Esophageal Reflux Disease (GERD),Hypothyroidism,Dysphagia,Type 1 Diabetes,Chronic Respiratory Failure, Patient Allergies Sulfa,Adhesive Tape, Patient Medications Levothyroxine, Keppra, Potassium, Amlodipine, Famotidine, Acetaminophen, Chief Complaint leaking g tube Disposition Transported No Lights/[place] Dispatch Reason Sick Person Transported To [facility] Narrative medic 1134 dispatched to a longterm facility for a report of a sick [facility] [address] [place] [address] EMS Patient Care Report Name: EVER COUGHLIN Room #: REG ADRYAN Meza#: [id number] Admission: 08/24/21 Attend Phys: Discharge: Date of : 54 Report #: [id number] [employer]. medic 1134 immediately responded to the scene without delay. upon arrival to the scene ems enters the facility to find a 71 y/o female supine in facility bed. pt opens her eyes to verbal stimuli. staff reports pt gastrostomy tube was dislodged. staff reports they noted the tube appeared to be dislodged with a drainage around the area. assessment of the area shows discoloration and a foul odor. staff requests pt to be transported to [facility]. pt transferred to stretcher using a draw sheet. stretcher transferred to ambulance, lifted, and secured. pt continuously monitored through out transport for changes in condition. upon arrival to the receiving facility pt transferred to er bed using a draw sheet. verbal report given to attending staff and transfer of care complete. 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,ALS Assessment,Response: UnchangedSucceeded, 06:20,Call Received 06:20,Psap Call 06:23,Dispatched 06:25,En Route 06:30,On Scene 06:33,At Patient 06:35,Oxygen FlowRate: 4 Device: Trach Mask Response: UnchangedSucceeded, 06:35,BP: 134/87 M,PULSE: 104,RR: 16 R,SPO2: 97 Ox,ETCO2: ,BG: ,PAIN: ,GCS: 11, 06:40,Surgical Mask on Patient,Response: Unchanged 06:46,BP: 118/78 M,PULSE: 105,RR: 16 R,SPO2: 97 Ox,ETCO2: ,BG: ,PAIN: ,GCS: 11, 06:47,Depart Scene 06:53,BP: 129/61 M,PULSE: 97,RR: 16 R,SPO2: 100 Ox,ETCO2: ,BG: ,PAIN: ,GCS: 11, 06:54,At Destination 07:13,Call Closed Disclaimer v1.1 Copyright 2020 [employer] [address] [address] EMS Patient Care Report Name: EVER COUGHLIN Room #: REG ADRYAN Hoyt.#: [id number] Admission: 08/24/21 Attend Phys: Discharge: Date of : 54 Report #: [id number] This EMS Care Summary contains data elements from the applicable legal record (which may be displayed differently). It is designed to provide pertinent information for the following purposes: continuity of care, clinical quality, and state data reporting. The complete legal record is available to ED staff and administrators of the receiving hospital in [facility]'s Patient Tracker. All data is provided "as is."
[2021-08-24 06:57] VITALS: BP 131/92
== END 2021-08-24 10:41 ==
LOC: ER 06:57
DX: K94.23 Gastrostomy malfunction (principal); E11.9 Type 2 diabetes mellitus without complications; Z79.899 Other long term (current) drug therapy; Z88.2 Allergy status to sulfonamides; Z91.048 Other nonmedicinal substance allergy status; Z88.8 Allergy status to other drugs, medicaments and biological substances

== ENCOUNTER 2021-08-24 18:04 | Emergency (ER) | payer OTHER ==
[~2021-08-24] VITALS: Ht 157.5 cm; Wt 73.3 kg
[2021-08-24 21:53] VITALS: BP 136/78
== END 2021-08-24 23:41 ==
LOC: ER 18:04
DX: K94.23 Gastrostomy malfunction (principal); E11.9 Type 2 diabetes mellitus without complications; Z79.899 Other long term (current) drug therapy; Z91.048 Other nonmedicinal substance allergy status; Z88.8 Allergy status to other drugs, medicaments and biological substances; Z88.2 Allergy status to sulfonamides